=== PATIENT | female | born 1960 | race Caucasian/White ===

== ENCOUNTER 2019-08-16 09:12 | Outpatient (CLI) | payer OTHER, SELFPAY ==
--- NOTE | 2019-08-16 09:25 | US_ITS ---
WS: [id number] Gallbladder ultrasound, 08/16/2019 Clinical Data: ABDOMINAL PAIN Comparison: None. Findings: The gallbladder shows no sludge or stone. The wall measures 1.9 mm with no pericholecystic fluid. The common bile duct is 2.4 mm and there are no intrahepatic ductal abnormalities. Liver shows no cysts, masses or dilated intrahepatic ducts. The pancreas is obscured by overlying bowel gas but no cyst, pseudocyst, or evidence of pancreatitis is noted. Right kidney measures 10.5 cm and no cyst, masses or hydronephrosis can be seen. The aorta and inferior vena cava show no vascular abnormalities. US/US gall bladder [id number] Impression: Negative gallbladder.
== END 2019-08-16 09:13 | disposition home or self-care (01) ==
LOC: RAD 09:18
PROVIDERS: Family Provider Family Medicine; PCP Family Medicine; Visit Provider Nurse Practitioner Family
DX: R10.9 Unspecified abdominal pain (principal)
CPT/HCPCS: 76705

== ENCOUNTER 2019-08-16 16:30 | Inpatient (IN) | payer OTHER, SELFPAY ==
[2019-08-16] VITALS (13 sets, daily range): BP systolic 98–170; BP diastolic 65–114; PULSE 73–95; RESP 16–18; TEMP 36.6; O2SAT 88–98; BMI 27.4
--- NOTE | 2019-08-16 16:52 | ED_ITS ---
Entered by Kiah Brooks, acting as scribe for Carlos Estradaud Aug 16, 2019 16:30 HPI - Abdominal Pain General: Chief Complaint: Abdominal Pain Stated Complaint: abd pain Time Seen by Provider: 08/16/19 16:52 Source: patient and family Mode of arrival: ambulatory Limitations: no limitations History of Present Illness: HPI narrative: 58 yo Female presents to ED with complaint of abdominal pain that started 3 days ago. Pt states pain started in her right shoulder. Pt states that she went to the chiropractor who thought she had a rib out and manipulated her. Pt states that she got no relief. Pt states that yesterday she started having abdominal pain that radiates through to her back. MD elicited complaint: abdominal pain Pertinent past history: none Onset (ago): day(s) (3) Pain Consistency: constant Location: Epigastric and RUQ Radiation: back Migration to: no migration Exacerbating factors: nothing Relieving factors: nothing Associated Symptoms: Reports heartburn and nausea; Denies chills, diarrhea, dysuria, fever(s), hematuria and vomiting Review of Systems General: Reports: 10 or more systems reviewed and unremarkable except in HPI and below Const: Denies: fever or chills Eyes: Denies: change in vision, blurry vision or blind spots ENMT: Denies: throat pain, painful swallowing, hoarseness or mouth pain Card: Denies: chest pain, palpitations or irregular heart rhythm Resp: Denies: shortness of breath, productive cough or non-productive cough GI: Reports: abdominal pain, nausea and heartburn/indigestion; Denies: vomiting or diarrhea : Reports: flank pain; Denies: difficulty urinating, painful urination, urinary frequency, urinary urgency or blood in urine Musc: Denies: neck pain, back pain, extremity pain or extremity swelling Skin/Breast: Denies: rash, itching or redness Neuro: Denies: headache, numbness in extremities or weakness in extremities Endo: Denies: excessive urination, excessive thirst or tired all the time PFSH ED PFSH: Statuses (acute, chronic, etc) shown below reflect problem list status as previously entered and may not be historically accurate Medical History (Updated 08/16/19 @ 17:12 by Kiah Brooks) HTN (hypertension) (Acute) IBS (irritable bowel syndrome) (Acute) TIA (transient ischemic attack) (Acute) Surgical History (Updated 08/16/19 @ 17:12 by Kiah Brooks) History of (Acute) History of tubal ligation (Acute) Social History Smoking and tobacco status: former smoker Physical Exam Const: COMMON NORMALS: average body habitus, oriented x3, no limitations, healthy appearing, alert and well nourished; apparent distress GENERAL APPEARANCE: in distress HENMT: COMMON NORMALS: normocephalic, head/scalp atraumatic, hearing grossly normal bilaterally, external ears normal, EAC's normal, TM's normal bilaterally, external nose normal, nasal mucous membranes and turbinates normal, moist oral mucous membranes, oropharynx normal, dentition normal and gingiva normal HEAD & SCALP: normocephalic and atraumatic NOSE: external nose normal and nasal mucous membranes and turbinates normal EXTERNAL EAR: Yes external ears normal EXTERNAL AUDITORY CANAL: EAC's normal TYMPANIC MEMBRANE: TM's normal bilaterally Eye: COMMON NORMALS: PERRL, EOMs intact bilaterally, conjunctivae normal, no scleral icterus, no papilledema, normal visual garcia by confrontation and fundi normal bilaterally CONJUNCTIVA: Yes conjunctivae normal PUPIL: Yes PERRL DIRECT OPHTHALMOSCOPY: Yes no papilledema and Yes fundi normal bilaterally Neck/C-Spine: COMMON NORMALS: full ROM, no lymphadenopathy, supple, no meningeal signs, no JVD, thyroid normal and no carotid bruits THYROID: thyroid normal Chest: COMMONS NORMALS: inspection of chest normal and palpation of chest normal Resp: COMMON NORMALS: normal respiratory effort, no retractions, no use of accessory muscles, clear to auscultation bilaterally and percussion normal AUSCULTATION: clear to auscultation bilaterally PERCUSSION: percussion normal Cardio: COMMON NORMALS: no JVD, regular rate, regular rhythm, S1 normal heart sound, S2 normal heart sound, no gallops, no clicks, no murmurs, no rub and peripheral pulses 2+ throughout RATE: regular rate RHYTHM: regular rhythm HEART SOUNDS: S1 normal and S2 normal PERIPHERAL PULSES: pulses 2+ throughout GI: COMMON NORMALS: normal to inspection, nondistended, normoactive bowel sounds, soft to palpation, non-tender, no hepatosplenomegaly, no masses and no bruits PALPATION: Yes soft, Yes tender Details: RUQ and Yes no hepatosplenomegaly : COMMON NORMALS: Yes no CVA tenderness BLADDER/KIDNEY EXAM: Yes no CVA tenderness Back/Pelvis: COMMON NORMALS: no CVA tenderness, thoracic and lumbar spine normal to inspection, no thoracic nor lumbar tenderness, thoraco-lumbar ROM normal and straight leg raise negative bilaterally Extremity: COMMON NORMALS: normal to inspection, full ROM, normal capillary refill, no joint enlargement, no clubbing, cyanosis or edema, no calf tenderness and no pedal edema Neuro: COMMON NORMALS: oriented x3 SENSORIUM/ORIENTATION: Yes alert MENINGEAL SIGNS: Yes no meningeal signs Skin: COMMON NORMALS: no rashes or lesions noted, no wounds, skin turgor normal, no jaundice, no petechiae and no mottling GENERAL SKIN EXAM: no rashes or lesions noted and turgor normal Course Vital Signs: Vital signs: Vital Signs Temperature 97.8 F 08/16/19 16:31 Pulse Rate 83 08/16/19 18:14 Respiratory Rate 16 08/16/19 17:17 Blood Pressure 170/114 08/16/19 16:31 Pulse Oximetry 93 08/16/19 18:14 MDM - Abdominal Pain Lab Data: Labs: Lab Results 08/16/19 08/16/19 Range/Units 17:20 17:20 WBC 13.8 H (4.0-10.0) 10^3/ uL RBC 4.75 (4.1-5.3) 10^6/u L Hgb 15.2 (11.5-15.3) g/dL Hct 44.3 (37.0-47.0) % MCV 93.3 (81-99) fL MCH 32.0 (28.0-34.0) pg MCHC 34.3 (30.0-36.0) g/dL RDW 11.7 L (12.1-15.1) % Plt Count 295 (130-400) 10^3/c mm MPV 9.6 (7.4-10.4) fL Neut % (Auto) 74.8 % Lymph % (Auto) 14.6 % [place] % (Auto) 8.9 % Eos % (Auto) 0.9 % Baso % (Auto) 0.4 % Neut # (Auto) 10.3 H (1.8-7.7) 10^3/u L Lymph # (Auto) 2.0 (0.8-4.8) 10^3/u L [place] # (Auto) 1.2 H (0.2-0.9) 10^3/u L Eos # (Auto) 0.1 (0.0-0.8) 10^3/u L Baso # (Auto) 0.1 (0.0-0.1) 10^3/u L Nucleated RBC % (a uto) 0 % Nucleated RBCs # 0.0 /100WBC Sodium 134 L (136-145) mmol/L Potassium 3.9 (3.5-5.1) mmol/L Chloride 97 L (98-107) mmol/L Carbon Dioxide 25 (22-29) mmol/L Anion Gap 15.9 (5-19) BUN 16 (6-20) mg/dL Creatinine 0.6 (0.5-0.9) mg/dL GFR Calculation 102.3 (90-130) mL/min Glucose 113 H (74-109) mg/dL Calcium 11.0 H (8.6-10.0) mg/Dl Total Bilirubin 0.4 (0.15-1.2) mg/dL AST 17 (0-32) U/L ALT 7 (0-33) U/L Alkaline Phosphata se 112 H (35-105) IU/L Total Protein 7.4 (6.6-8.7) g/dL Albumin 4.3 (3.5-5.2) g/dL Globulin 3.1 (1.3-4.6) g/dL Lipase 32 (13-60) U/L Discharge Plan Discharge Prescriptions: No Action multivitamin Tablet 1 tab PO DAILY RF: 0 metoprolol succinate 50 mg tablet extended release 24 hr 50 mg PO BID RF: 0 temazepam 15 mg capsule 15 mg PO BEDTIME RF: 0 fluoxetine 20 mg capsule 60 mg PO DAILY RF: 0 Fish Oil 1,000 mg (120 mg-180 mg) Capsule 1 cap PO DAILY RF: 0 Coding Level of Care Code ED Supervisor [employer] for Chg Fwd Exam Problem Focused The documentation recorded by the Todd salinas Carmen, accurately reflects the service I personally performed and the decisions made by Sean iverson Daud Aug 16, 2019 16:30
[2019-08-16] MEDS: morphine 4 mg/mL SDV 1 mL IVP (17:17)
[2019-08-16] MEDS: ondansetron 2 mg/ML SDV 2 mL 4 MG IM (17:26)
[2019-08-16 17:32] LABS: Basophils # 0.1 10^3/uL (0.0-0.1); Basophils % 0.4 %; Eosinophils # 0.1 10^3/uL (0.0-0.8); Eosinophils % 0.9 %; Hematocrit 44.3 % (37.0-47.0); Hemoglobin 15.2 g/dL (11.5-15.3); Lymphocytes % 14.6 %; Mean Corpuscular HGB Conc 34.3 g/dL (30.0-36.0); Mean Corpuscular Volume 93.3 fL (81-99); Mean Platelet Volume 9.6 fL (7.4-10.4); Monocytes # 1.2 10^3/uL (0.2-0.9); Monocytes % 8.9 %; Neutrophils # 10.3 10^3/uL (1.8-7.7); Neutrophils % 74.8 %; Nucleated Red Blood Cells % 0 %; Platelet Count 295 10^3/cmm (130-400); Red Blood Count 4.75 10^6/uL (4.1-5.3); Red Cell Distribution Width 11.7 % (12.1-15.1); White Blood Count 13.8 10^3/uL (4.0-10.0)
[2019-08-16 17:42] LABS: Alanine Aminotransferase 7 U/L (0-33); Albumin Level 4.3 g/dL (3.5-5.2); Alkaline Phosphatase 112 IU/L (35-105); Anion Gap 15.9 (5-19); Aspartate Amino Transferase 17 U/L (0-32); Blood Urea Nitrogen 16 mg/dL (6-20); Carbon Dioxide 25 mmol/L (22-29); Chloride 97 mmol/L (98-107); Globulin 3.1 g/dL (1.3-4.6); Glomerular Filtration Rate 102.3 mL/min (90-130); Glucose 113 mg/dL (74-109); Lipase 32 U/L (13-60); Potassium 3.9 mmol/L (3.5-5.1); Sodium 134 mmol/L (136-145); Total Bilirubin 0.4 mg/dL (0.15-1.2); Total Protein 7.4 g/dL (6.6-8.7)
[2019-08-16] MEDS: HYDROmorphone 1 mg/mL INJ 1 mL IVP ×3 (18:28→23:27)
[2019-08-16 18:38] LABS: Add Urine Microscopic? NO
[2019-08-16 18:47] LABS: Bilirubin Urine Neg (NEGATIVE); Blood Urine Neg (Negative); Glucose Urine UA Norm (Normal); Ketones Urine Negative (Negative); Leukocyte Esterase Urine Negative (Negative); Nitrate Urine Negative (Negative); Protein Urine Neg (Negative); Specific Gravity, Urine 1.015 (1.005-1.030); Urine Appearance Clear (CLEAR); Urine Color Yellow (Yellow); Urobilinogen Urine Norm (Negative); pH Urine 5 (5-7)
--- NOTE | 2019-08-16 18:51 | CTR_ITS ---
PROCEDURE INFORMATION: Exam: CT Abdomen And Pelvis With Contrast Exam date and time: 08/16/2019 7:12 PM Age: 58 years old Clinical indication: Abdominal pain; Prior surgery; Surgery type: Tubal TECHNIQUE: Imaging protocol: Computed tomography of the abdomen and pelvis with intravenous contrast. Total DLP: 1625.46 mGy-cm Radiation optimization: All CT scans at this facility use at least one of these dose optimization techniques: automated exposure control; mA and/or kV adjustment per patient size (includes targeted exams where dose is matched to clinical indication); or iterative reconstruction. Contrast material: OMNI 300; Contrast volume: 95 ml; Contrast route: IV; COMPARISON: US gall bladder [id number] 08/16/2019 9:39 AM FINDINGS: Lungs: Mild atelectasis. Tiny low densities in the left liver lobe are too small to characterize but most likely cysts. Liver: See Lungs Finding. Gallbladder and bile ducts: Normal. No calcified stones. No ductal dilation. Pancreas: Edema in the pancreatic head with anterior fat stranding. The body and tail of the pancreas are normal. Spleen: Normal. No splenomegaly. Adrenals: Normal. No mass. Kidneys and ureters: Normal. No hydronephrosis. Stomach and bowel: Diverticulosis of the descending and sigmoid colon without diverticulitis. Mild circumferential wall thickening and enhancement of the 1st and 2nd portions of the duodenum. The remainder of the small bowel and the stomach are unremarkable. Appendix: The appendix is normal. Intraperitoneal space: Unremarkable. No free air. No significant fluid collection. Vasculature: Unremarkable. No abdominal aortic aneurysm. Lymph nodes: Multiple subcentimeter peripancreatic lymph nodes are most likely reactive. Bladder: Unremarkable as visualized. Reproductive: Unremarkable as visualized. Bones/joints: Unremarkable. No acute fracture. Soft tissues: Unremarkable. CT/CT abdomen pelvis w con* [id number] IMPRESSION: 1. Findings most consistent with acute interstitial edematous pancreatitis, isolated to the pancreatic head. An underlying neoplastic process is considered less likely and CT follow-up to document resolution is recommended. 2. Adjacent duodenitis. 3. Diverticulosis of the distal colon. Radiation Dose CTDIVOL = (mGy): DLP = 1625.46 (mGy-cm)
[2019-08-16] MEDS: sodium chloride 0.9% 1,000 ML 999 ML IV (18:57)
[2019-08-16] MEDS: iohexol 300 mg/mL 100 mL Btl IV (19:38)
[2019-08-16 20:35] LABS: Alcohol Level < 10 mg/dL (0-10)
[2019-08-16] MEDS: ondansetron 2 mg/ML SDV 2 mL 4 MG IVP (21:35)
--- NOTE | 2019-08-16 22:41 | P.HP_ITS ---
Providers/Chief Complaint Primary Care Provider: Devin Oswald DO Chief Complaint: pancratitis History of Present Illness Tristian Anthony is a 58 year old female with PMHx of HTN, Depression, Former smoker; presents from home for evaluation of abdominal pain that awakened her from sleep last night and has persisted since then. She has had intermittent nausea but no vomiting, has not been able to eat anything since the onset of pa in. She describes the pain as constant, in the epigastric and right upper quadrant area with radiation to the right upper back. Nothing seems to make the pain better but movement seems to make the pain particularly worse. She denies having had pain similar to this in the past. She drinks 1 glass of wine on Saturdays, denies any substance abuse, is a former smoker, states that she quit smoking regularly several years ago but did smoke 1 cigarette today due to the extent of her pain. is present at bedside during my assessment in the ER. She has had knees drawn up to her abdomen and is very uncomfortable during my assessment. So far she has received doses of Dilaudid and morphine with continued pain. Labs indicate leukocytosis with a white count of 13.8, normal hemoglobin, normal electrolytes, normal renal function, lipase of 32, negative alcohol screen, negative urinalysis. She had a CT of the abdomen and pelvis showing acute interstitial edematous pancreatitis isolated to the pancreatic head. She also had an ultrasound which is negative for cholecystitis. She currently rates her pain at 7 out of 10. Vital signs are stable though she is intermittently hypoxic and will likely require supplemental oxygen. I discussed her imaging findings and need for bowel rest, aggressive IV fluid hydration and continued pain control which she is agreeable to. Patient will be admitted for the aforementioned treatment. Review of Systems Const: Reports: change in appetite (decreased appetite) and malaise; Denies: fever or chills Eyes: Denies: change in vision ENMT: Reports: dry mouth Card: Denies: chest pain, swelling of feet/ankles or lightheadedness Resp: Denies: shortness of breath GI: Reports: abdominal pain (epigastric, RUQ; radiating to upper right back) and nausea; Denies: vomiting, vomiting blood, diarrhea, constipation or blood in stool : Denies: difficulty urinating, painful urination or urinary frequency Musc: Reports: back pain (right upper back pain) Skin/Breast: Denies: rash Neuro: Denies: numbness in extremities or weakness in extremities Psych: Denies: anxiety Medications/Allergies Home Medications Medication Instructions Recorded Confirmed Last Taken Type fluoxetine 60 mg PO DAILY 08/16/19 08/16/19 08/15/19 History metoprolol succinate 50 mg PO BID 08/16/19 08/16/19 08/15/19 History multivitamin 1 tab PO DAILY 08/16/19 08/16/19 08/15/19 History omega 5-[id number]-[id number]-fish oil [Fish Oil] 1 cap PO DAILY 08/16/19 08/16/19 08/15/19 History temazepam 15 mg PO BEDTIME 08/16/19 08/16/19 08/15/19 History Allergies Allergy/AdvReac Type Severity Reaction Status Date / Time meperidine [From Demerol] Allergy Unknown Verified 08/16/19 16:37 PFSH Acute PFSH: Statuses (acute, chronic, etc) shown below reflect problem list status as previously entered and may not be historically accurate Medical History HTN (hypertension) (Acute) IBS (irritable bowel syndrome) (Acute) TIA (transient ischemic attack) (Acute) Surgical History History of (Acute) History of tubal ligation (Acute) Family History (Updated 08/16/19 @ 22:43 by Carissa Levy MD) Mother Polymyalgia rheumatica Father Abdominal aortic aneurysm Other CAD (coronary artery disease) Cancer Hypertension Social History (Updated 08/16/19 @ 22:44 by Carissa Levy MD) Smoking and tobacco status: former smoker Quit status (tobacco): has quit using tobacco Year quit tobacco: Several years ago, last cigarette was today Alcohol intake: current Alcohol type: wine Alcohol use comment: 1 glass of wine per week on Saturdays Substance/Drug Use: never Lives independently: Yes Household members: spouse Housing: House Vitals/I&O/Wt Last Vital Signs Temp 97.8 F 08/16/19 16:31 Pulse 84 08/16/19 21:11 Resp 18 08/16/19 21:11 BP 98/65 08/16/19 21:11 Pulse Ox 88 L 08/16/19 21:49 08/16/19 08/16/19 08/16/19 06:59 14:59 22:59 Intake Total 1000 / 1000 Balance 1000 / 1000 Weight last 48 hrs Weight 77.111 kg Physical Exam Const: COMMON NORMALS: no apparent distress, oriented x3 and alert GENERAL APPEARANCE: cooperative; not comfortable ORIENTATION/CONSCIOUSNESS: Yes awake HENMT: COMMON NORMALS: normocephalic, head/scalp atraumatic and hearing grossly normal bilaterally HEAD & SCALP: normocephalic and atraumatic MOUTH: moist mucous membranes abnormal Details: parched Eye: COMMON NORMALS: PERRL, EOMs intact bilaterally and conjunctivae normal CONJUNCTIVA: Yes conjunctivae normal PUPIL: Yes PERRL Neck/C-Spine: COMMON NORMALS: full ROM GENERAL: Yes normal visual inspection and Yes trachea midline Resp: COMMON NORMALS: normal respiratory effort, no retractions, no use of accessory muscles and clear to auscultation bilaterally EFFORT & INSPECTION: Yes able to speak in complete sentences, Yes symmetric chest movement and No tachypneic AUSCULTATION: clear to auscultation bilaterally Cardio: COMMON NORMALS: regular rate, regular rhythm, S1 normal heart sound, S2 normal heart sound and no murmurs RATE: regular rate RHYTHM: regular rhythm HEART SOUNDS: S1 normal and S2 normal GI: INSPECTION: Yes normal to inspection and Yes central obesity AUSCULTATION: Yes normoactive bowel sounds PALPATION: Yes soft, Yes tender Details: RUQ and other (Epigastric) and No rebound tenderness present Back/Pelvis: COMMON NORMALS: thoracic and lumbar spine normal to inspection Extremity: COMMON NORMALS: normal to inspection, full ROM and no clubbing, cyanosis or edema; negative for no pedal edema Neuro: COMMON NORMALS: oriented x3, moves all extremities, no focal motor deficits and no sensory deficits noted Psych: COMMON NORMALS: mental status grossly normal, thought process normal, cooperative, affect normal and speech normal SPEECH: Yes normal speech THOUGHT PROCESS: normal thought process Skin: COMMON NORMALS: no rashes or lesions noted, no jaundice, no petechiae and no mottling GENERAL SKIN EXAM: no rashes or lesions noted Data : 08/16/19 17:20 08/16/19 17:20 A&P Assessment and plan (1) Pancreatitis: -Noted acute interstitial edematous pancreatitis isolated to the pancreatic head on CT of the abdomen and pelvis. Normal lipase -Is in quite a bit of abdominal pain currently -Bowel rest, aggressive IV fluid hydration, antiemetics and pain control as needed -Repeat labs in a.m., noted leukocytosis with an initial white count of 13.8 -Alcohol screen negative; drinks 1 glass of wine/week -Check lipid panel and A1c in a.m. Status: Acute Qualifiers: Acute pancreatitis complication: unspecified Chronicity: acute Pancreatitis type: unspecified pancreatitis type Qualified Code(s): K85.90 - Acute pancreatitis without necrosis or infection, unspecified Code(s): K85.90 - Acute pancreatitis without necrosis or infection, unspecified Additional A&P Information -HTN -Depression -Former smoker -GI ppx with PPI -DVT ppx with Lovenox -Dispo: home -Code status: FULL code Attestations Medical Necessity Statement*: [facility]'s hospital stay will require greater than 2 midnights for management of acute pancreatitis including bowel rest, aggressive IV fluid hydration, antiemetics and pain control. Time Spent in Patient Care: Greater than 35 minutes (>than 50% of time spent in counselling and/or direct pt care on unit) . Coding Level of Care Code Acute Designer And Patternmaker for Rhys Magallanes Diagnoses Pancreatitis K85.90 Acute pancreatitis complication: unspecified Chronicity: acute Pancreatitis type: unspecified pancreatitis type
[2019-08-16] MEDS: sodium chloride 0.9% 1,000 ML 200 ML IV (23:27)
[2019-08-16] MEDS: enoxaparin 40 mg/0.4 mL Syringe SUBCUT (23:28)
[2019-08-17] VITALS (12 sets, daily range): BP systolic 108–164; BP diastolic 72–91; PULSE 77–107; RESP 17–22; TEMP 36.6–37.4; O2SAT 91–95
[2019-08-17] MEDS: ketorolac 30 mg/mL INJ 15 MG IVP ×4 (02:36→20:52)
[2019-08-17] MEDS: sodium chloride 0.9% 1,000 ML 200 ML IV ×3 (05:07→16:45)
[2019-08-17] MEDS: HYDROmorphone 1 mg/mL INJ 1 mL IVP ×3 (05:35→18:59)
[2019-08-17 06:28] LABS: Basophils % 0.3 %; Eosinophils % 0.3 %; Hematocrit 38.4 % (37.0-47.0); Hemoglobin 13.1 g/dL (11.5-15.3); Lymphocytes # 1.4 10^3/uL (0.8-4.8); Lymphocytes % 12.1 %; Mean Corpuscular HGB Conc 34.1 g/dL (30.0-36.0); Mean Corpuscular Volume 93.9 fL (81-99); Mean Platelet Volume 9.9 fL (7.4-10.4); Monocytes # 0.9 10^3/uL (0.2-0.9); Monocytes % 7.8 %; Neutrophils # 9.2 10^3/uL (1.8-7.7); Neutrophils % 79.2 %; Nucleated Red Blood Cells % 0 %; Platelet Count 265 10^3/cmm (130-400); Red Blood Count 4.09 10^6/uL (4.1-5.3); Red Cell Distribution Width 11.9 % (12.1-15.1); White Blood Count 11.7 10^3/uL (4.0-10.0)
[2019-08-17 06:44] LABS: Blood Urea Nitrogen 14 mg/dL (6-20); Calcium 10.2 mg/Dl (8.6-10.0); Carbon Dioxide 23 mmol/L (22-29); Chloride 102 mmol/L (98-107); Chol HDL Ratio 4.52 mg/dL (0.0-4.40); Cholesterol 208 mg/dL (0-200); Glomerular Filtration Rate 126.3 mL/min (90-130); Glucose 113 mg/dL (74-109); HDL Cholesterol 46 mg/dL (60-100); LDL Cholesterol Calculated 136 mg/dL (50-129); LDL HDL Ratio 2.96 RATIO (0.00-3.22); Lipase 23 U/L (13-60); Sodium 137 mmol/L (136-145); Triglycerides 128 mg/dL (0-150)
[2019-08-17] MEDS: pantoprazole 40 mg SDV IVP (08:33)
[2019-08-17 08:42] LABS: Estmated Average Glucose 85; Hemoglobin A1C 4.6 % (4.0-6.0)
--- NOTE | 2019-08-17 12:35 | P.PN_ITS ---
Subjective Subjective: Interval history: Pain better controlled, Passing flatus. No BM. nausea + Medications: Reviewed: Yes Vitals/I&O/Wt Last Vital Signs Temp 99.3 F 08/17/19 12:00 Pulse 103 H 08/17/19 12:00 Resp 17 08/17/19 12:00 BP 131/76 08/17/19 12:00 Pulse Ox 91 08/17/19 12:00 08/16/19 08/17/19 08/17/19 22:59 06:59 14:59 Intake Total 1000 / 1000 1000 / 2000 1000 / 1000 Output Total 400 / 400 200 / 200 Balance 1000 / 1000 600 / 1600 800 / 800 Weight last 48 hrs Weight 94.546 kg Weight 94.546 kg Weight 77.111 kg Physical Exam Const: COMMON NORMALS: no apparent distress and oriented x3 Neck/C-Spine: COMMON NORMALS: no JVD Resp: COMMON NORMALS: normal respiratory effort, no retractions, no use of accessory muscles, clear to auscultation bilaterally and percussion normal AUSCULTATION: clear to auscultation bilaterally PERCUSSION: percussion normal Cardio: COMMON NORMALS: no JVD, regular rate, regular rhythm, S1 normal heart sound, S2 normal heart sound, no gallops, no clicks, no murmurs, no rub and peripheral pulses 2+ throughout RATE: regular rate RHYTHM: regular rhythm HEART SOUNDS: S1 normal and S2 normal PERIPHERAL PULSES: pulses 2+ throughout GI: COMMON NORMALS: normal to inspection, nondistended, normoactive bowel sounds PALPATION: Yes tender Details: LUQ and RUQ Neuro: COMMON NORMALS: oriented x3 Data : 08/17/19 05:52 08/17/19 05:52 A&P Assessment and plan (1) Pancreatitis: -Noted acute interstitial edematous pancreatitis isolated to the pancr eatic head on CT of the abdomen and pelvis. Normal lipase -Is in quite a bit of abdominal pain currently -Bowel rest, aggressive IV fluid hydration, antiemetics and pain control as needed -Repeat labs in a.m., noted leukocytosis with an initial white count of 13.8 - blood cx, CXR -Alcohol screen negative; drinks 1 glass of wine/week -Check lipid panel and A1c in a.m. 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
--- NOTE | 2019-08-17 12:38 | XR_ITS ---
WS: [id number] Portable AP upright chest, 08/17/2019 Clinical Data: r/o pneumonia Comparison: PA and lateral chest, 01/04/2019. Findings: No nodules, masses or effusions are seen. The heart is normal. The pulmonary vascularity is not increased. No pneumonia or pneumothorax is seen. XR/XR chest 1V portable [id number] Impression: Negative chest.
[2019-08-17] MEDS: ondansetron 2 mg/ML SDV 2 mL 4 MG IVP (20:52)
[2019-08-17] MEDS: sodium chloride 0.9% 1,000 ML 150 ML IV (21:01)
[2019-08-17] MEDS: enoxaparin 40 mg/0.4 mL Syringe SUBCUT (22:49)
[2019-08-18] VITALS (12 sets, daily range): BP systolic 134–163; BP diastolic 75–89; PULSE 88–105; RESP 16–18; TEMP 36.7–37.1; O2SAT 92–95
[2019-08-18] MEDS: HYDROmorphone 1 mg/mL INJ 1 mL IVP ×3 (01:23→15:24)
[2019-08-18] MEDS: sodium chloride 0.9% 1,000 ML 150 ML IV ×3 (04:45→17:34)
[2019-08-18] MEDS: ondansetron 2 mg/ML SDV 2 mL 4 MG IVP (04:52)
[2019-08-18] MEDS: ketorolac 30 mg/mL INJ 15 MG IVP ×3 (04:52→21:45)
[2019-08-18 06:21] LABS: Ionized Calcium 1.3 mmol/L (1.1-1.4)
[2019-08-18 06:27] LABS: Basophils # 0.1 10^3/uL (0.0-0.1); Basophils % 0.5 %; Eosinophils # 0.1 10^3/uL (0.0-0.8); Eosinophils % 0.8 %; Hematocrit 36.9 % (37.0-47.0); Hemoglobin 12.5 g/dL (11.5-15.3); Lymphocytes # 1.6 10^3/uL (0.8-4.8); Lymphocytes % 15.6 %; Mean Corpuscular HGB Conc 33.9 g/dL (30.0-36.0); Mean Corpuscular Volume 91.6 fL (81-99); Mean Platelet Volume 9.4 fL (7.4-10.4); Monocytes # 0.8 10^3/uL (0.2-0.9); Monocytes % 8.1 %; Neutrophils # 7.4 10^3/uL (1.8-7.7); Neutrophils % 74.6 %; Nucleated Red Blood Cells % 0 %; Platelet Count 253 10^3/cmm (130-400); Red Blood Count 4.03 10^6/uL (4.1-5.3); Red Cell Distribution Width 11.7 % (12.1-15.1); White Blood Count 9.9 10^3/uL (4.0-10.0)
[2019-08-18 06:46] LABS: Alanine Aminotransferase 12 U/L (0-33); Albumin Level 3.8 g/dL (3.5-5.2); Alkaline Phosphatase 89 IU/L (35-105); Anion Gap 16.5 (5-19); Aspartate Amino Transferase 12 U/L (0-32); Blood Urea Nitrogen 5 mg/dL (6-20); Calcium 10.2 mg/Dl (8.6-10.0); Carbon Dioxide 23 mmol/L (22-29); Chloride 101 mmol/L (98-107); Globulin 2.7 g/dL (1.3-4.6); Glomerular Filtration Rate 163.4 mL/min (90-130); Glucose 83 mg/dL (74-109); Potassium 3.5 mmol/L (3.5-5.1); Sodium 137 mmol/L (136-145); Total Bilirubin 0.5 mg/dL (0.15-1.2); Total Protein 6.5 g/dL (6.6-8.7)
[2019-08-18 06:59] LABS: Calcium 9.9 mg/dL (8.8-10.2); Parathyroid Hormone 47.6 pg/mL (15-65)
[2019-08-18] MEDS: pantoprazole 40 mg SDV IVP (08:46)
--- NOTE | 2019-08-18 10:22 | PC.NURSE ---
Notified Dr Cole via [facility] R/T patient C/O headache. No orders thus far
--- NOTE | 2019-08-18 10:51 | PC.NURSE ---
administer PRN toradol for headache a this time
--- NOTE | 2019-08-18 11:59 | PC.NURSE ---
Pt resting in bed with eyes closed. Resp even and unlabored. 0 s/s of distress noted. Call light in reach
--- NOTE | 2019-08-18 18:16 | P.PN_ITS ---
Subjective Subjective: Interval history: Pain better controlled, passing gas. No nausea today. hemodynamically stable. Afebrile. C/o mild headache Medications: Reviewed: Yes Vitals/I&O/Wt Last Vital Signs Temp 98.1 F 08/18/19 15:48 Pulse 90 08/18/19 15:48 Resp 18 08/18/19 15:48 BP 150/88 08/18/19 15:48 Pulse Ox 94 08/18/19 15:48 08/18/19 08/18/19 08/18/19 06:59 14:59 22:59 Intake Total 1000 / 3816.666 0 / 0 1000 / 1000 Output Total 1100 / 1100 1000 / 2100 Balance 1000 / 3216.666 -1100 / -1100 0 / -1100 Weight last 48 hrs Weight 94.755 kg Weight 94.546 kg Weight 94.546 kg Physical Exam Const: COMMON NORMALS: no apparent distress and oriented x3 Neck/C-Spine: COMMON NORMALS: no JVD Resp: COMMON NORMALS: normal respiratory effort, no retractions, no use of accessory muscles, clear to auscultation bilaterally and percussion normal AUSCULTATION: clear to auscultation bilaterally PERCUSSION: percussion normal Cardio: COMMON NORMALS: no JVD, regular rate, regular rhythm, S1 normal heart sound, S2 normal heart sound, no gallops, no clicks, no murmurs, no rub and peripheral pulses 2+ throughout RATE: regular rate RHYTHM: regular rhythm HEART SOUNDS: S1 normal and S2 normal PERIPHERAL PULSES: pulses 2+ throughout GI: COMMON NORMALS: normal to inspection, nondistended, normoactive bowel sounds PALPATION: Yes tender Neuro: COMMON NORMALS: oriented x3 Data : 08/18/19 06:08 08/18/19 06:08 Micro: Microbiology 08/17/19 13:01 Blood Culture - Preliminary Blood NEGATIVE TO DATE 08/17/19 13:10 Blood Culture - Preliminary Blood NEGATIVE TO DATE A&P Assessment and plan (1) Pancreatitis: -Noted acute interstitial edematous pancreatitis isolated to the pancreatic head on CT of the abdomen and pelvis. Normal lipase - abdominal pain improving - start clear liquid diet. will advance diet in am if tolerates - aggressive IV fluid hydration, antiemetics and pain control as needed with alternating dilaudid and toradol - blood cx, CXR negative thus far -Alcohol screen negative; drinks 1 glass of wine/week - unclear precipitating cause . Status: Acute Qualifiers: Acute pancreatitis complication: unspecified Chronicity: acute Pancreatitis type: unspecified pancreatitis type Qualified Code(s): K85.90 - Acute pancreatitis without necrosis or infection, unspecified Code(s): K85.90 - Acute pancreatitis without necrosis or infection, unspecified Additional A&P Information -HTN -Depression -Former smoker -GI ppx with PPI -DVT ppx with Lovenox -Dispo: home -Code status: FULL code Attestations Medical Necessity Statement*: ongoing mangament of pancreatitis, awaiting clinical improvement, started diet today Coding Level of Care Code Acute Electrical And Instrument Engineer for [facility] Fwd Diagnoses Pancreatitis K85.90 Acute pancreatitis complication: unspecified Chronicity: acute Pancreatitis type: unspecified pancreatitis type
--- NOTE | 2019-08-18 18:31 | PC.NURSE ---
Call to Dr Cole regarding VS, Order to change VS to Q4H
[2019-08-18] MEDS: enoxaparin 40 mg/0.4 mL Syringe SUBCUT (23:01)
[2019-08-19] VITALS (7 sets, daily range): BP systolic 128–163; BP diastolic 79–94; PULSE 71–90; RESP 16–20; TEMP 36.6–37.1; O2SAT 94–97
[2019-08-19] MEDS: sodium chloride 0.9% 1,000 ML 150 ML IV ×3 (01:58→17:24)
[2019-08-19] MEDS: HYDROmorphone 1 mg/mL INJ 1 mL IVP (02:06)
[2019-08-19 05:54] LABS: Basophils % 0.4 %; Eosinophils # 0.2 10^3/uL (0.0-0.8); Hematocrit 34.5 % (37.0-47.0); Hemoglobin 11.5 g/dL (11.5-15.3); Lymphocytes # 1.7 10^3/uL (0.8-4.8); Lymphocytes % 26.1 %; Mean Corpuscular HGB Conc 33.3 g/dL (30.0-36.0); Mean Corpuscular Hemoglobin 31.7 pg (28.0-34.0); Mean Platelet Volume 9.6 fL (7.4-10.4); Monocytes # 0.6 10^3/uL (0.2-0.9); Monocytes % 9.1 %; Neutrophils # 4.1 10^3/uL (1.8-7.7); Neutrophils % 61.1 %; Nucleated Red Blood Cells % 0 %; Platelet Count 245 10^3/cmm (130-400); Red Blood Count 3.63 10^6/uL (4.1-5.3); Red Cell Distribution Width 11.7 % (12.1-15.1); White Blood Count 6.7 10^3/uL (4.0-10.0)
[2019-08-19] MEDS: pantoprazole 40 mg SDV IVP (09:41)
[2019-08-19] MEDS: ketorolac 30 mg/mL INJ 15 MG IVP ×2 (09:45→23:00)
--- NOTE | 2019-08-19 12:27 | PM.PN ---
Subjective Subjective: Interval history: Afebrile. Hemodynamically stable. No leukocytosis. No acute overnight events. Medications: Reviewed: Yes Vitals/I&O/Wt Last Vital Signs Temp 98.1 F 08/19/19 07:40 Pulse 79 08/19/19 07:40 Resp 18 08/19/19 07:40 BP 150/82 08/19/19 07:40 Pulse Ox 96 08/19/19 07:40 08/18/19 08/19/19 08/19/19 22:59 06:59 14:59 Intake Total 1000 / 1000 1597 / 2597 1240 / 1240 Output Total 1000 / 2100 Balance 0 / -1100 1597 / 497 1240 / 1240 Weight last 48 hrs Weight 94.517 kg Weight 94.755 kg Physical Exam Const: COMMON NORMALS: no apparent distress and oriented x3 Neck/C-Spine: COMMON NORMALS: no JVD Resp: COMMON NORMALS: normal respiratory effort, no retractions, no use of accessory muscles, clear to auscultation bilaterally and percussion normal AUSCULTATION: clear to auscultation bilaterally PERCUSSION: percussion normal Cardio: COMMON NORMALS: no JVD, regular rate, regular rhythm, S1 normal heart sound, S2 normal heart sound, no gallops, no clicks, no murmurs, no rub and peripheral pulses 2+ throughout RATE: regular rate RHYTHM: regular rhythm HEART SOUNDS: S1 normal and S2 normal PERIPHERAL PULSES: pulses 2+ throughout GI: COMMON NORMALS: normal to inspection, nondistended, normoactive bowel sounds PALPATION: Yes tender Neuro: COMMON NORMALS: oriented x3 Data : 08/19/19 05:20 08/18/19 06:08 Micro: Microbiology 08/17/19 13:01 Blood Culture - Preliminary Blood NEGATIVE TO DATE 08/17/19 13:10 Blood Culture - Preliminary Blood NEGATIVE TO DATE A&P Assessment and plan (1) Pancreatitis: -Noted acute interstitial edematous pancreatitis isolated to the pancreatic head on CT of the abdomen and pelvis. Normal lipase - abdominal pain improving, less frequent now - advance diet to full liquid as tolerated clear liquids - aggressive IV fluid hydration, antiemetics and pain control as needed with alternating dilaudid and toradol - blood cx, CXR negative thus far -Alcohol screen negative; drinks 1 glass of wine/week - unclear precipitating cause . -if pain persists, will plan for MRCP Status: Acute Qualifiers: Acute pancreatitis complication: unspecified Chronicity: acute Pancreatitis type: unspecified pancreatitis type Qualified Code(s): K85.90 - Acute pancreatitis without necrosis or infection, unspecified Code(s): K85.90 - Acute pancreatitis without necrosis or infection, unspecified Additional A&P Information -HTN -Depression -Former smoker -GI ppx with PPI -DVT ppx with Lovenox -Dispo: home -Code status: FULL code Attestations Medical Necessity Statement*: management of pancreatitis, slowly advancing diet Coding Level of Care Code Acute Certified First Assistant for [facility] Fwd Exam Problem Focused Diagnoses Pancreatitis K85.90 Acute pancreatitis complication: unspecified Chronicity: acute Pancreatitis type: unspecified pancreatitis type
[2019-08-19] MEDS: enoxaparin 40 mg/0.4 mL Syringe SUBCUT (21:26)
[2019-08-19] MEDS: temazepam 15 mg Capsule PO (21:26)
[2019-08-20] VITALS: BP 151/81; PULSE 72; RESP 18; TEMP 36.5; O2SAT 95
[2019-08-20] MEDS: sodium chloride 0.9% 1,000 ML 150 ML IV (03:25)
[2019-08-20 04:00] VITALS: BP 162/99; PULSE 84; RESP 18; TEMP 36.7; O2SAT 94
[2019-08-20 06:39] LABS: Basophils % 0.7 %; Eosinophils # 0.2 10^3/uL (0.0-0.8); Eosinophils % 3.1 %; Hematocrit 34.1 % (37.0-47.0); Hemoglobin 12.1 g/dL (11.5-15.3); Lymphocytes # 1.6 10^3/uL (0.8-4.8); Lymphocytes % 26.8 %; Mean Corpuscular HGB Conc 35.5 g/dL (30.0-36.0); Mean Corpuscular Hemoglobin 31.3 pg (28.0-34.0); Mean Corpuscular Volume 88.1 fL (81-99); Mean Platelet Volume 9.4 fL (7.4-10.4); Monocytes # 0.6 10^3/uL (0.2-0.9); Monocytes % 9.5 %; Neutrophils # 3.5 10^3/uL (1.8-7.7); Neutrophils % 59.6 %; Nucleated Red Blood Cells % 0 %; Platelet Count 307 10^3/cmm (130-400); Red Blood Count 3.87 10^6/uL (4.1-5.3); Red Cell Distribution Width 11.5 % (12.1-15.1); White Blood Count 5.9 10^3/uL (4.0-10.0)
[2019-08-20 08:00] VITALS: BP 131/74; PULSE 81; RESP 16; TEMP 36.8; O2SAT 97
[2019-08-20] MEDS: fluoxetine 20 mg Capsule 60 MG PO (08:51)
[2019-08-20] MEDS: metoprolol succinate ER (24 HR) 50 mg Tablet PO (08:52)
[2019-08-20] MEDS: pantoprazole 40 mg SDV IVP (09:38)
--- NOTE | 2019-08-20 11:08 | PC.NURSE ---
PT GONE TO MRI.
[2019-08-20 12:00] VITALS: BP 151/88; PULSE 83; RESP 17; TEMP 36.6; O2SAT 97
--- NOTE | 2019-08-20 14:01 | PM.DCS ---
Discharge Providers Date of Admission: 08/16/19 22:17 Date of Discharge: 08/20/19 Attending Provider at Admission: Carissa Levy MD Attending Provider at Discharge: Jadiel Reyna MD Primary Care Provider: Devin Oswald DO Diagnoses at Discharge Discharge Diagnosis (1) Pancreatitis: Status: Acute Qualifiers: Acute pancreatitis complication: unspecified Chronicity: acute Pancreatitis type: unspecified pancreatitis type Qualified Code(s): K85.90 - Acute pancreatitis without necrosis or infection, unspecified Reason for Visit Reason for Visit: Reason For Visit: Pancreatitis Hospital Course Discharge Summary: Tristian Anthony is a 58 year old female with PMHx of HTN, Depression, Former smoker; presented to the ER on August 16 with complaint of abdominal pain with nausea and vomiting was found to have pancreatitis on CT abdomen. Patient was admitted to the floors and treated conservatively with IV fluids and her diet was advanced gradually. Etiology of pancreatitis is unclear as patient is not an alcoholic, triglycerides were normal, HbA1c was normal, abdominal imaging was unremarkable for gallstones and the blood work was unremarkable for recent gallstone. Though unlikely autoimmune work-up was sent and is pending. On further interview with patient she stated that she had recently started Mediterranean diet 1 month ago. Patient has documented allergies other food products before so has been advised to follow-up with allergy clinic in [place] to rule out allergy to 1 of the components from Mediterranean diet. Patient for now has been advised to advance her diet gradually while having brat diet for next 1 week. On discharge patient is tolerating GI soft diet well. Patient has also been advised to follow-up with a tax advisor in [place] for pancreatitis. Patient is been discharged in hemodynamically stable condition, pain-free and tolerating GI soft diet well. Physical Exam Const: COMMON NORMALS: no apparent distress, oriented x3 and alert GENERAL APPEARANCE: cooperative; not comfortable ORIENTATION/CONSCIOUSNESS: Yes awake HENMT: COMMON NORMALS: normocephalic, head/scalp atraumatic and hearing grossly normal bilaterally HEAD & SCALP: normocephalic and atraumatic MOUTH: moist mucous membranes abnormal Details: parched Eye: COMMON NORMALS: PERRL, EOMs intact bilaterally and conjunctivae normal CONJUNCTIVA: Yes conjunctivae normal PUPIL: Yes PERRL Neck/C-Spine: COMMON NORMALS: full ROM and no JVD GENERAL: Yes normal visual inspection and Yes trachea midline Resp: COMMON NORMALS: normal respiratory effort, no retractions, no use of accessory muscles, clear to auscultation bilaterally and percussion normal EFFORT & INSPECTION: Yes able to speak in complete sentences, Yes symmetric chest movement and No tachypneic AUSCULTATION: clear to auscultation bilaterally PERCUSSION: percussion normal Cardio: COMMON NORMALS: no JVD, regular rate, regular rhythm, S1 normal heart sound, S2 normal heart sound, no gallops, no clicks, no murmurs, no rub and peripheral pulses 2+ throughout RATE: regular rate RHYTHM: regular rhythm HEART SOUNDS: S1 normal and S2 normal PERIPHERAL PULSES: pulses 2+ throughout GI: COMMON NORMALS: normal to inspection, nondistended, normoactive bowel sounds and soft to palpation INSPECTION: Yes normal to inspection and Yes central obesity AUSCULTATION: Yes normoactive bowel sounds PALPATION: Yes soft, Yes tender and No rebound tenderness present Back/Pelvis: COMMON NORMALS: thoracic and lumbar spine normal to inspection Extremity: COMMON NORMALS: normal to inspection, full ROM and no clubbing, cyanosis or edema; negative for no pedal edema Neuro: COMMON NORMALS: oriented x3, moves all extremities, no focal motor deficits and no sensory deficits noted SENSORIUM/ORIENTATION: Yes alert Psych: COMMON NORMALS: mental status grossly normal, thought process normal, cooperative, affect normal and speech normal SPEECH: Yes normal speech THOUGHT PROCESS: normal thought process Skin: COMMON NORMALS: no rashes or lesions noted, no jaundice, no petechiae and no mottling GENERAL SKIN EXAM: no rashes or lesions noted Discharge Data Data Completed and Pending: Completed Studies During Hospitalization Category Date Time Status CT abdomen pelvis w con* [id number] Urge nt Cat Scan 08/16/19 18:51 Completed XR chest 1V naomi ble [id number] Routine Exams 08/17/19 12:38 Completed MR MRCP [id number] Rou aldo MRI 08/20/19 17:21 Completed Pending at discharge Category Date Time Status Blood Culture AM LABS Lab 08/20/19 05:54 Results Blood Culture Sta t Lab 08/17/19 13:01 Results [facility] Profile R outine Lab 08/19/19 05:20 Received Labs from last 24 hours 08/20/19 06:22 WBC 5.9 RBC 3.87 L Hgb 12.1 Hct 34.1 L MCV 88.1 MCH 31.3 MCHC 35.5 RDW 11.5 L Plt Count 307 MPV 9.4 Neut % (Auto) 59.6 Lymph % (Auto) 26.8 [place] % (Auto) 9.5 Eos % (Auto) 3.1 Baso % (Auto) 0.7 Neut # (Auto) 3.5 Lymph # (Auto) 1.6 [place] # (Auto) 0.6 Eos # (Auto) 0.2 Baso # (Auto) 0.0 Nucleated RBC % (a uto) 0 Nucleated RBCs # 0.0 Vitals: Last Vital Signs Temp 97.8 F 08/20/19 12:00 Pulse 83 08/20/19 12:00 Resp 17 08/20/19 12:00 BP 151/88 08/20/19 12:00 Pulse Ox 97 08/20/19 12:00 Discharge Plan Discharge Patient Disposition: Home, Self-Care Condition: Stable Prescriptions: New pantoprazole [Protonix] 40 mg tablet,delayed release (DR/EC) 40 mg PO DAILY 28 Days Qty: 30 RF: 0 Continued multivitamin Tablet 1 tab PO DAILY RF: 0 metoprolol succinate 50 mg tablet extended release 24 hr 50 mg PO BID RF: 0 temazepam 15 mg capsule 15 mg PO BEDTIME RF: 0 fluoxetine 20 mg capsule 60 mg PO DAILY RF: 0 Fish Oil 1,000 mg (120 mg-180 mg) Capsule 1 cap PO DAILY RF: 0 Discharge Orders: Discharge Order (Routine); Ordered 08/20/19 Ordered By: Jadiel Reyna Referrals: Devin Oswald, [Primary Care Provider] - Discharge Diet: Advance as tolerated and As Directed Discharge Activity: Resume usual activity Activity Restrictions/Additional Instructions: Follow-up with tax advisor in [place] in 2 weeks. Follow-up at allergy clinic in [place] to rule out allergy to Mediterranean diet Brat diet for 1 week and gradually advancing as tolerated. Discharge Attestations Time Spent in Discharge Care*: greater than 30 min Specific Discharge Activities: Specific discharge activities: educating patient and evaluating patient/reviewing data Status at Discharge: Cognitive status at discharge: cognitively intact, Behavioral status at discharge: cooperative, Functional status at discharge: independent ambulation Overall status at discharge: patient is back to baseline Quality Metrics Clinical Quality Measures During this hospital stay, did patient experience: None Coding Level of Care Code Acute Electrical Technician for [facility] Fwd Diagnoses Pancreatitis K85.90 Acute pancreatitis complication: unspecified Chronicity: acute Pancreatitis type: unspecified pancreatitis type
[2019-08-20 15:01] VITALS: BP 151/88; PULSE 83; RESP 17; TEMP 36.6; O2SAT 97
--- NOTE | 2019-08-20 17:21 | MR_ITS ---
WS: [id number] MRI/MRCP OF THE ABDOMEN WITHOUT GADOLINIUM ENHANCEMENT TECHNIQUE: Thin and thick slab MRCP, Axial T2, Coronal MRCP, Axial Dual Echo, and Axial 2-D Fiesta imaging was obtained. Coronal 2-D Fiesta imaging. CLINICAL INFORMATION: pancreatitis, r/o gallstone COMPARISON: CT 1 16,020 FINDINGS: T2 hyperintensity consistent with edema and surrounding induration consistent with acute pancreatitis similar to the recent CT. No evidence of pseudocyst or drainable fluid collection. No significant pa ncreatic ductal dilatation. Mild fatty atrophy of the pancreas. Gallbladder is normal. No intrahepatic biliary ductal dilatation. No visualized obstructing common bi le duct stones. No evidence of choledocholithiasis. Liver is normal. Normal gastroesophageal junction. Normal spleen. Normal renal parenchymal enhancemen t. Normal caliber abdominal aorta. MR/MR MRCP [id number] Impression: 1. Inflammatory stranding and edema involving the pancreatic head similar to t he recent CT consistent with pancreatitis. 2. No evidence of abscess or fluid collection. 3. No evidence of choledocholithiasis. No pancreatic ductal dilatation. 4. Normal intrahepatic and common bile ducts. Normal gallbladder.
[2019-08-21 14:12] LABS: Anti-Double Strand DNA AB <1 IU/mL; Jo-1 Antibody <1.0 NEG AI (<1.0 NEG); SM/RNP Antibodies <1.0 NEG AI (<1.0 NEG); SS-B/LA IGG <1.0 NEG AI (<1.0 NEG); Scleroderma Ab(Scl-70) Ab <1.0 NEG AI (<1.0 NEG); Ss-A/Ro Igg <1.0 NEG AI (<1.0 NEG)
== END 2019-08-20 15:30 | disposition home or self-care (01) | DRG 440 ==
LOC: ER 22:16 → MEDSURG 22:45
PROVIDERS: Student in an Organized Health Care Education/Training Program; Admitting Provider Family Medicine; Emergency Provider Emergency Medicine; Family Provider Family Medicine; PCP Family Medicine; Visit Provider Student in an Organized Health Care Education/Training Program
DX: K85.80 Other acute pancreatitis without necrosis or infection (principal); I10 Essential (primary) hypertension; F32.9 Major depressive disorder, single episode, unspecified; F17.210 Nicotine dependence, cigarettes, uncomplicated
CPT/HCPCS: 12345; 36415; 71045; 74177; 74181; 80048; 80053; 80061; 80307; 81003; 82310; 82330; 83036; 83690; 83970; 84443; 85025; 86225; 86235; 87040; 96372; 96374; 96375; 99283; A9270; C9113; J1170; J1650; J1885; J2270; J2405; J7030; Q9967

== ENCOUNTER 2019-12-25 13:06 | Emergency (ER) | payer OTHER, SELFPAY ==
[2019-12-25] VITALS (9 sets, daily range): BP systolic 95–154; BP diastolic 61–94; PULSE 57–81; RESP 14–20; TEMP 36–36.5; O2SAT 94–97; BMI 29.0
--- NOTE | 2019-12-25 13:26 | ED_ITS ---
HPI - Abdominal Pain General: Chief Complaint: Abdominal Pain Stated Complaint: abd pain Time Seen by Provider: 12/25/19 13:23 History of Present Illness: HPI narrative: Patient is a 59-year-old female who comes to the ED with abdominal pain and nausea. Patient has a past medical history of pancreatitis. Patient says abdominal pain started last night and is continued to progress into today. Pain is located in the right upper quadrant region of the abdomen. She is also complaining of having some nausea. Several days ago she said she had about 5 bowel movements in 1 day and they were all small formed stool. Today she only ate a Nut[employer] bar in the morning and that did not make her feel any better and she has been sipping on water throughout the rest of the day. Abdominal pain is rated 9 out of 10 in the abdomen. Associated Symptoms: Reports nausea; Denies chills, constipation, diarrhea, dysuria, fever(s), hematochezia, hematuria and vomiting Review of Systems Const: Denies: fever(s), chills or fatigue Eyes: Denies: change in vision or eye discomfort ENMT: Denies: throat pain, odynophagia, nasal discharge or nasal congestion Card: Denies: chest pain, palpitations, edema, swelling of feet/ankles, dyspnea on exertion or orthopnea Resp: Denies: dyspnea, productive cough or non-productive cough GI: Reports: abdominal pain and nausea; Denies: vomiting, diarrhea, constipation or hematochezia : Denies: flank pain, dysuria or hematuria Musc: Denies: neck pain, back pain or extremity swelling Skin/Breast: Denies: rash or new lesions Neuro: Denies: headache(s), numbness in extremities or weakness in extremities PFSH ED PFSH: Medical History HTN (hypertension) IBS (irritable bowel syndrome) TIA (transient ischemic attack) Surgical History History of History of tubal ligation Family History Mother Polymyalgia rheumatica Father Abdominal aortic aneurysm Other CAD (coronary artery disease) Cancer Hypertension Social History Smoking and tobacco status: former smoker Quit status (tobacco): has quit using tobacco Year quit tobacco: Several years ago, last cigarette was today Alcohol intake: current Alcohol type: wine Lives independently: Yes Household members: spouse Housing: House Physical Exam Const: COMMON NORMALS: patient oriented x3 and alert GENERAL APPEARANCE: cooperative, anxious (mildly anxious due to pain) and well hydrated; not comfortable (pt appears uncomfortable and little anxious due to pain.) HENMT: COMMON NORMALS: normocephalic HEAD & SCALP: normocephalic MOUTH: Normal oral and palatal mucosa present THROAT: posterior oropharynx normal and uvula midline Eye: COMMON NORMALS: Equal, round and reactive pupils present PUPIL: Yes Equal, round and reactive pupils present Neck/C-Spine: COMMON NORMALS: supple GENERAL: Yes normal visual inspection Resp: COMMON NORMALS: normal respiratory effort, No retractions, No use of accessory muscles and clear to auscultation bilaterally EFFORT & INSPECTION: Yes able to speak in complete sentences and No respiratory distress AUSCULTATION: clear to auscultation bilaterally Cardio: COMMON NORMALS: regular rate, regular rhythm, S1 normal heart sound present, S2 normal heart sound present, No gallops present (Cardio), No clicks present (Cardio), No murmurs present (Cardio) and Peripheral pulses 2+ throughout RATE: regular rate RHYTHM: regular rhythm HEART SOUNDS: S1 normal heart sound present and S2 normal heart sound present PERIPHERAL PULSES: Peripheral pulses 2+ throughout GI: COMMON NORMALS: Normal to inspection, nondistended, normoactive bowel sounds present, Soft to palpation and no masses AUSCULTATION: Yes normoactive bowel sounds PALPATION: Yes Soft to palpation and Yes Tenderness to palpation present (GI) Details: RUQ (sena sign positive) : COMMON NORMALS: Yes no CVA tenderness BLADDER/KIDNEY EXAM: Yes no CVA tenderness Back/Pelvis: COMMON NORMALS: no CVA tenderness Extremity: COMMON NORMALS: normal to inspection and no pedal edema Neuro: COMMON NORMALS: patient oriented x3 SENSORIUM/ORIENTATION: Yes alert GAIT: Yes Normal gait present Skin: COMMON NORMALS: no rashes or lesions noted GENERAL SKIN EXAM: no rashes or lesions noted and dry skin Course Vital Signs: Vital signs: Vital Signs Temperature 97.6 F 12/25/19 17:14 Pulse Rate 57 L 12/25/19 17:14 Respiratory Rate 18 12/25/19 17:14 Blood Pressure 113/71 12/25/19 17:14 Pulse Oximetry 97 12/25/19 17:14 MDM - Abdominal Pain MDM Narrative: Medical decision making narrative: Patient is a 59-year-old female who comes to the ED with abdominal pain and nausea. Patient has a past medical history of pancreatitis. Physical exam showed right upper quadrant tenderness with a positive Sena sign. White blood cell count of 10.6, sodium of 133, and lipase of 36. Ultrasound of the gallbladder was performed and showed no acute findings. CT of the abdomen pelvis showed Very minimal changes of acute pancreatitis centered to the uncinate process of the pancreas. Patient diagnosed with pancreatitis and she preferred not to be admitted. Patient was discharged and given some hydrocodone and Zofran to help with pain and nausea. She was told to be n.p.o. for the next 24 hours besides drinking water. She was then told to advance diet as tolerated. If symptoms worsen she can return to the ED for reevaluation. Patient understood and agreed with plan. Lab Data: Attestation: I reviewed the patient's lab results. Labs: Lab Results 12/25/19 12/25/19 Range/Units 13:34 13:34 WBC 10.6 H (4.0-10.0) 10^3/ uL RBC 4.87 (4.1-5.3) 10^6/u L Hgb 15.1 (11.5-15.3) g/dL Hct 44.0 (37.0-47.0) % MCV 90.3 (81-99) fL MCH 31.0 (28.0-34.0) pg MCHC 34.3 (30.0-36.0) g/dL RDW 12.4 (12.1-15.1) % Plt Count 263 (130-400) 10^3/c mm MPV 9.6 (7.4-10.4) fL Neut % (Auto) 71.6 % Lymph % (Auto) 19.0 % Angelina % (Auto) 7.6 % Eos % (Auto) 0.8 % Baso % (Auto) 0.7 % Neut # (Auto) 7.6 (1.8-7.7) 10^3/u L Lymph # (Auto) 2.0 (0.8-4.8) 10^3/u L Angelina # (Auto) 0.8 (0.2-0.9) 10^3/u L Eos # (Auto) 0.1 (0.0-0.8) 10^3/u L Baso # (Auto) 0.1 (0.0-0.1) 10^3/u L Nucleated RBC % (a uto) 0 % Nucleated RBCs # 0.0 /100WBC Sodium 133 L (136-145) mmol/L Potassium 4.1 (3.5-5.1) mmol/L Chloride 98 (98-107) mmol/L Carbon Dioxide 23 (22-29) mmol/L Anion Gap 16.1 (5-19) BUN 15 (8-23) mg/dL Creatinine 0.5 (0.5-0.9) mg/dL GFR Calculation 125.9 (90-130) mL/min Glucose 105 (65-115) mg/dL Calculated Osmolal ity 273 L (285-295) mOsm/k g Calcium 9.9 (8.5-10.5) mg/dL Total Bilirubin 0.3 (0.15-1.2) mg/dL AST 19 (0-32) U/L ALT 22 (0-33) U/L Alkaline Phosphata se 89 (35-105) IU/L Total Protein 6.6 (6.6-8.7) g/dL Albumin 4.2 (3.5-5.2) g/dL Globulin 2.4 (1.3-4.6) g/dL Lipase 36 (13-60) U/L Imaging Data ^: US: Attestation: I personally reviewed and interpreted this imaging study as follows: Radiologist's impression: [address] [address] Ultrasound Report Signed Patient: Tristian Anthony Unit #: [id number] : 1960 Age/Sex: 59 / F ADM Date: 12/25/19 Loc: ER Room/Bed: Attending Dr: Ordering Provider/Ordering MD: Quang Nayak Date of Service: 12/25/19 Procedure(s): US gall bladder 89910 Accession Number(s): [id number] Report Number: [id number] WS: [id number] RIGHT UPPER QUADRANT ULTRASOUND HISTORY: RUQ tenderness with nausea COMPARISON: 08/16/2019 Liver: 17.5 cm in length. Normal size and echogenicity with no intrahepatic dilatation. No mass. Gallbladder: Normally distended gallbladder with no stones or wall thickening. CBD: 0.5 cm Pancreas: Normal size and echogenicity. Right kidney: 11.0 cm in length. Normal echogenicity with no mass or hydronephrosis. Aorta and IVC: Unremarkable. No ascites. US/US gall bladder [id number] IMPRESSION: Normal RIGHT upper quadrant ultrasound. Dictated By: Laverne Mcfarland DO Signed By: Laverne Mcfarland DO Signed Date/Time: 12/25/19 1410 DD/ 1409 CT Abd/Pel: Attestation: I personally reviewed and interpreted this imaging study as follows: Radiologist's impression: [place] [address] CT Scan Report Signed Patient: Tristian Anthony Unit #: [id number] : 1960 Age/Sex: 59 / F ADM Date: 12/25/19 Loc: ER Room/Bed: Attending Dr: Ordering Provider/Ordering MD: Quang Nayak Date of Service: 12/25/19 Procedure(s): CT abdomen pelvis w con* [id number] Accession Number(s): [id number] Report Number: [id number] WS: [id number] CT ABDOMEN AND PELVIS WITH CONTRAST HISTORY: abdominal pain (RUQ) w/ nausea TECHNIQUE: Imaging performed of the abdomen and pelvis with IV contrast. Single phase imaging of the abdomen. Coronal and sagittal reformats are submitted. All CT scans at [facility] use at least one of these dose optimization techniques: automated exposure control; mA and/or kV adjustment per patient size (includes targeted exams where dose is matched to clinical indication); or iterative reconstruction. IV CONTRAST: Omnipaque 300; 95 mL IV. Oral contrast: No DLP: 1556.52 mGy.cm COMPARISON: 08/16/2019 Lower thorax: Mild dependent changes at the lung bases. Heart is normal size. Small hiatal hernia. Liver/biliary system: There is very slight dilatation of the intrahepatic ducts which is similar to the prior study. No mass. Gallbladder: Normal. No gallstones or wall thickening. No pericholecystic fl uid. Pancreas: Body of the pancreas is negative. There is some very minimal stranding around the uncinate process. Stranding at the pancreatic head is improved. No duct dilatation. Spleen: Normal. Adrenal glands: Normal. Right kidney: Normal. Left kidney: Normal. Aorta: Mild atherosclerosis aorta. No aneurysm. Lymphadenopathy: None. Free fluid: None. GI tract: Normal appendix. Mild fecal retention. Numerous diverticula in the LEFT colon. No acute inflammation. Abdominal wall: Unremarkable abdominal wall. No hernia. Pelvis: Normally distended urinary bladder. Uterus and ovaries are negative. No adenopathy. Bones: No osteoblastic or osteolytic bone disease. CT/CT abdomen pelvis w con* [id number] IMPRESSION: 1. Very minimal changes of acute pancreatitis centered to the uncinate process of the pancreas. 2. No pseudocyst or abscess. 3. Small hiatal hernia. 4. Normal appendix. 5. Distal colon diverticulosis without acute diverticulitis. Dictated By: Laverne Mcfarland DO Signed By: Laverne Mcfarland DO Signed Date/Time: 12/25/191516 DD/ 09 Discharge Plan Discharge Patient Disposition: Home, Self-Care Clinical Impression: Pancreatitis Qualifiers: Chronicity: acute Pancreatitis type: unspecified pancreatitis type Acute pancreatitis complication: no infection or necrosis Qualified Code(s): K85.90 - Acute pancreatitis without necrosis or infection, unspecified Condition: Stable Prescriptions: New Zofran 4 mg tablet 4 mg PO DAILY Qty: 20 RF: 0 No Action temazepam 15 mg capsule 15 mg PO BEDTIME RF: 0 fluoxetine 20 mg capsule 60 mg PO DAILY RF: 0 Zyrtec 10 mg Tablet 10 mg PO DAILY RF: 0 atenolol 50 mg Tablet 50 mg PO DAILY RF: 0 Nexium 20 mg Capsule,Delayed Release(Dr/Ec) 20 mg PO DAILY RF: 0 Discharge Orders: Discharge Order (Routine); Ordered 12/25/19 Ordered By: Quang Nayak Referrals: Devin Oswald DO [Primary Care Provider] - Discharge Diet: Advance as tolerated, Clear Liquid and Full LIquid Discharge Activity: Increase activity as tolerated Patient Instructions: Pancreatitis (ED) Activity Restrictions/Additional Instructions: Call PCP tomorrow to either set up an appointment with them or get a referral to GI specialist. Take the prescribed hydrocodone as needed for any pain. You can take the Zofran as needed for any nausea. You can drink fluids especially water to stay hydrated but n.p.o. for the first 24 hours and then slowly start advancing your diet as tolerated. Discharge Date/Time: 12/25/19 17:00 Coding Level of Care Code ED Airplane Navigator for Chg Fwd Exam Comprehensive
--- NOTE | 2019-12-25 13:32 | US_ITS ---
WS: [id number] RIGHT UPPER QUADRANT ULTRASOUND HISTORY: RUQ tenderness with nausea COMPARISON: 08/16/2019 Liver: 17.5 cm in length. Normal size and echogenicity with no intrahepatic dilatation. No mass. Gallbladder: Normally distended gallbladder with no stones or wall thickening. CBD: 0.5 cm Pancreas: Normal size and echogenicity. Right kidney: 11.0 cm in length. Normal echogenicity with no mass or hydronephrosis. Aorta and IVC: Unremarkable. No ascites. US/US gall bladder [id number] IMPRESSION: Normal RIGHT upper quadrant ultrasound.
[2019-12-25 13:42] LABS: Basophils # 0.1 10^3/uL (0.0-0.1); Basophils % 0.7 %; Eosinophils # 0.1 10^3/uL (0.0-0.8); Eosinophils % 0.8 %; Hemoglobin 15.1 g/dL (11.5-15.3); Mean Corpuscular HGB Conc 34.3 g/dL (30.0-36.0); Mean Corpuscular Volume 90.3 fL (81-99); Mean Platelet Volume 9.6 fL (7.4-10.4); Monocytes # 0.8 10^3/uL (0.2-0.9); Monocytes % 7.6 %; Neutrophils # 7.6 10^3/uL (1.8-7.7); Neutrophils % 71.6 %; Nucleated Red Blood Cells % 0 %; Platelet Count 263 10^3/cmm (130-400); Red Blood Count 4.87 10^6/uL (4.1-5.3); Red Cell Distribution Width 12.4 % (12.1-15.1); White Blood Count 10.6 10^3/uL (4.0-10.0)
[2019-12-25] MEDS: ondansetron 2 mg/ML SDV 2 mL 4 MG IVP (13:46)
[2019-12-25] MEDS: sodium chloride 0.9% 1,000 ML 999 ML IV (13:46)
[2019-12-25] MEDS: morphine 4 mg/mL SDV 1 mL IVP ×2 (13:46→15:42)
[2019-12-25 13:58] LABS: Alanine Aminotransferase 22 U/L (0-33); Albumin Level 4.2 g/dL (3.5-5.2); Alkaline Phosphatase 89 IU/L (35-105); Anion Gap 16.1 (5-19); Aspartate Amino Transferase 19 U/L (0-32); Blood Urea Nitrogen 15 mg/dL (8-23); Calcium 9.9 mg/dL (8.5-10.5); Carbon Dioxide 23 mmol/L (22-29); Chloride 98 mmol/L (98-107); Globulin 2.4 g/dL (1.3-4.6); Glomerular Filtration Rate 125.9 mL/min (90-130); Glucose 105 mg/dL (65-115); Lipase 36 U/L (13-60); Osmolality Calculated 273 mOsm/kg (285-295); Potassium 4.1 mmol/L (3.5-5.1); Sodium 133 mmol/L (136-145); Total Bilirubin 0.3 mg/dL (0.15-1.2); Total Protein 6.6 g/dL (6.6-8.7)
--- NOTE | 2019-12-25 14:16 | CT_ITS ---
WS: [id number] CT ABDOMEN AND PELVIS WITH CONTRAST HISTORY: abdominal pain (RUQ) w/ nausea TECHNIQUE: Imaging performed of the abdomen and pelvis with IV contrast. Single phase imaging of the abdomen. Coronal and sagittal reformats are submitted. All CT scans at [facility] use at least one of these dose optimization techniques: automated exposure control; mA and/or kV adjustment per patient size (includes targeted exams where dose is matched to clinical indication); or iterativ e reconstruction. IV CONTRAST: Omnipaque 300; 95 mL IV. Oral contrast: No DLP: 1556.52 mGy.cm COMPARISON: 08/16/2019 Lower thorax: Mild dependent changes at the lung bases. Heart is normal size. Small hiatal hernia. Liver/biliary system: There is very slight dilatation of the intrahepatic ducts which is similar to t he prior study. No mass. Gallbladder: Normal. No gallstones or wall thickening. No pericholecystic fluid. Pancreas: Body of the pancreas is negative. There is some very minimal stranding around the uncinate process. Stranding at the pancreatic head is improved. No duct dilatation. Spleen: Normal. Adrenal glands: Normal. Right kidney: Normal. Left kidney: Normal. Aorta: Mild atherosclerosis aorta. No aneurysm. Lymphadenopathy: None. Free fluid: None. GI tract: Normal appendix. Mild fecal retention. Numerous diverticula in the LEFT colon. No acute inf lammation. Abdominal wall: Unremarkable abdominal wall. No hernia. Pelvis: Normally distended urinary bladder. Uterus and ovaries are negative. No adenopathy. Bones: No osteoblastic or osteolytic bone disease. CT/CT abdomen pelvis w con* [id number] IMPRESSION: 1. Very minimal changes of acute pancreatitis centered to the uncinate process of the pancreas. 2. No pseudocyst or abscess. 3. Small hiatal hernia. 4. Normal appendix. 5. Distal colon diverticulosis without acute diverticulitis.
[2019-12-25] MEDS: iohexol 300 mg/mL 100 mL Btl IV (15:00)
== END 2019-12-25 17:00 | disposition home or self-care (01) ==
PROVIDERS: Emergency Provider Physician Assistant; Family Provider Family Medicine; PCP Family Medicine
DX: K85.90 Acute pancreatitis without necrosis or infection, unspecified (principal); I10 Essential (primary) hypertension; Z86.73 Personal history of transient ischemic attack (TIA), and cerebral infarction without residual deficits; Z87.891 Personal history of nicotine dependence
CPT/HCPCS: 12345; 36415; 74177; 76705; 80053; 83690; 85025; 96361; 96374; 96375; 96376; 99283; J2270; J2405; J7030; Q9967

== ENCOUNTER 2020-06-04 12:00 | Outpatient (CLI) | payer OTHER, SELFPAY | END 2020-06-04 12:01 | disposition home or self-care (01) | LOC: SLEEP 06-05 10:06 | PROVIDERS: PCP Internal Medicine; Visit Provider Internal Medicine | DX: G47.00 Insomnia, unspecified (principal) | CPT/HCPCS: G0399 ==

== ENCOUNTER 2020-06-11 13:45 | Outpatient (CLI) | payer OTHER, SELFPAY ==
--- NOTE | 2020-06-11 15:26 | XR_ITS ---
WS: [id number] Bone mineral density performed on a WiFi Rail IDXA 06/11/2020 Clinical data: SCREENING FOR OSTEOPOROSIS Findings: The first 4 lumbar vertebral bodies demonstrated the bone mineral density of 0.943 g/cm2 for a young adult T score of -2.0. Measurement of the left hip reveals a bone mineral density of 0.827 g/cm2 with a young adult T score of -1.4. Measurement of the right hip reveals the bone mineral density of 0.795 g/cm2 for young adult T score of -1.7. XR/XR DEXA axial skeleton* [id number] Impression: 1. Osteopenia of the lumbar spine. 2. Osteopenia of both hips.
== END 2020-06-11 13:46 | disposition home or self-care (01) ==
LOC: RADWPI 13:49
PROVIDERS: PCP Internal Medicine; Visit Provider Internal Medicine
DX: Z13.820 Encounter for screening for osteoporosis (principal); M85.89 Other specified disorders of bone density and structure, multiple sites
CPT/HCPCS: 77080

== ENCOUNTER → 2020-06-25 15:01 | Outpatient (BNVA) | payer OTHER, SELFPAY | PROVIDERS: PCP Internal Medicine; Visit Provider Surgery | DX: K29.80 Duodenitis without bleeding (principal); Z12.11 Encounter for screening for malignant neoplasm of colon; K85.90 Acute pancreatitis without necrosis or infection, unspecified | CPT/HCPCS: 87635 ==

== ENCOUNTER 2020-07-01 08:16 | Day surgery (SDC) | payer OTHER, SELFPAY ==
[2020-06-25 13:24] VITALS: BMI 29.0
[2020-07-01 08:40] VITALS: BP 111/75; PULSE 78; RESP 18; TEMP 36.2; O2SAT 97
[2020-07-01] MEDS: sodium chloride 0.9% 1,000 ML 30 ML IV (08:57)
--- NOTE | 2020-07-01 09:02 | ANES.PREANE2 ---
Pre-Anesthetic Assessment Pre-Anesthetic Assessment: Height/Weight: Height 1.68 m Weight 81.647 kg Temp Pulse Resp BP Pulse Ox 97.1 F L 78 18 111/75 97 07/01/20 08:40 07/01/20 08:40 07/01/20 08:40 07/01/20 08:40 07/01/20 08:40 Preop Diagnosis: hx pancreatitis Proposed Procedure: Operation Date: 07/01/20 09:30 Proposed Procedures p EGD [id number] 16829 K29.80 Z12.11(Not Applicable) - Reji Merchant MD s Colonoscopy(Not Applicable) - Reji Merchant MD Familial anesthetic complications: None Was Beta Nel taken within 24 hours: Yes Last intake: Intake Last Liquid Date 06/30/20 Last Liquid Time 23:30 Last Solid Date 06/29/20 Last Solid Time 18:30 Social: Social History: No alcohol and No tobacco Exam: Pre-Anes Outpt Exam: alert, oriented x 3, clear to auscultation bilaterally and regular rate & rhythm Airway: Cervical ROM: WNL MP: 1 Dentition: Partials Pulmonary: Pulmonary: Sleep apnea (getting CPAP on the ) CV/HEM: CV/HEM: HTN GI: GI: GERD Comments: hx pancreatitis Metabolic: Comments: being worked up for óscar's Anesthetic Plan: ASA status: 2 Anesthesia: MAC Risk of > 500 ml blood loss (7ml/kg in children): No Meds/Allergies Current Medications: Current Medications Generic Name Dose Route Start Last Admin Trade Name Freq PRN Reason Stop Dose Admin Sodium Chloride 1,000 mls @ 30 ml s/hr 07/01/20 08:45 07/01/20 08:57 Sodium Chloride 0.9% IV 07/02/20 08:44 30 mls/hr .Q24H XAVIER Administration PFSH Anesthesia PFSH: Medical History HTN (hypertension) IBS (irritable bowel syndrome) TIA (transient ischemic attack) Surgical History History of History of tubal ligation Family History Mother Polymyalgia rheumatica Father Abdominal aortic aneurysm Other CAD (coronary artery disease) Cancer Hypertension Denies family history of Anesthesia complication Bleeding disorder Social History Smoking and tobacco status: former smoker Quit status (tobacco): has quit using tobacco Year quit tobacco: Several years ago, last cigarette was today Alcohol intake: current Alcohol intake frequency: holidays/special occasions only Alcohol type: wine Lives independently: Yes Household members: spouse Housing: House Marital status: Current occupational status: employed History of recent travel: No Data Anesthesia Cardiac Studies: No Data to Display
--- NOTE | 2020-07-01 09:51 | W.PM.OPSUD ---
Surgery/Procedure H&P Update DATE OF PROCEDURE: July 01, 2020 DATE H&P PERFORMED: 06/10/20 H&P UPDATE INFORMATION: I have reviewed H&P completed within last 30 days, I have examined patient prior to procedure and No changes to prior documentation PREOP DIAGNOSIS: hx pancreatitis PLANNED PROCEDURE: Operation Date: 07/01/20 09:30 Proposed Procedures p EGD [id number] 26315 K29.80 Z12.11(Not Applicable) - Reji Merchant MD s Colonoscopy(Not Applicable) - Reji Merchant MD
[2020-07-01 10:46] VITALS: BP 128/89; PULSE 66; RESP 16; TEMP 36.3; O2SAT 96
--- NOTE | 2020-07-01 10:58 | ANE.PACU2 ---
Inpatient post-anesthesia follow up: Airway intact: Yes Vital signs: Temperature 97.4 F Pulse Rate 66 Respiratory Rate 16 Blood Pressure 128/89 Pulse Oximetry 96 Oxygen Delivery Me thod Nasal Cannula Oxygen Flow Rate 2 Fraction of Inspir ed Oxygen Hydration adequate: Yes Nausea and vomiting: No Pain level: 2 Mental status: Baseline
[2020-07-01 11:00] VITALS: BP 160/100; PULSE 63; RESP 16; TEMP 36.3; O2SAT 96
== END 2020-07-01 11:40 | disposition home or self-care (01) ==
PROVIDERS: PCP Internal Medicine; Visit Provider Surgery
PROC: 0DJ08ZZ Inspection of Upper Intestinal Tract, Via Natural or Artificial Opening Endoscopic (ICD-10-PCS; CPT 43235; principal; 2020-07-01 09:30)
PROC: 0DJD8ZZ Inspection of Lower Intestinal Tract, Via Natural or Artificial Opening Endoscopic (ICD-10-PCS; CPT 45378; 2020-07-01 09:30)
DX: Z12.11 Encounter for screening for malignant neoplasm of colon (principal); K29.70 Gastritis, unspecified, without bleeding; K29.80 Duodenitis without bleeding; K57.30 Diverticulosis of large intestine without perforation or abscess without bleeding; K64.8 Other hemorrhoids; I10 Essential (primary) hypertension; G47.30 Sleep apnea, unspecified; K21.9 Gastro-esophageal reflux disease without esophagitis; Z86.73 Personal history of transient ischemic attack (TIA), and cerebral infarction without residual deficits; Z87.891 Personal history of nicotine dependence
CPT/HCPCS: 12345; 43239; 45378; 88305; J2704; J7030

== ENCOUNTER 2020-07-18 13:29 | Outpatient (CLI) | payer OTHER, SELFPAY ==
--- NOTE | 2020-07-18 13:35 | MM_ITS ---
WS: [id number] SCREENING DIGITAL MAMMOGRAM WITH CAD HISTORY: SCREENING COMPARISON: 10/25/2014 Bilateral CC and MLO views submitted. Computer aided detection analyzed. Breast composition: There are scattered areas of fibroglandular density. 8mm nodule in the anterior RIGHT breast just posterior to the nipple. New irregular nodule near 12:00 measuring 5 mm RIGHT breast. LEFT breast is unchanged. MM/[place] [id number] IMPRESSION: BI-RADS: 0-Incomplete: Need additional imaging evaluation FOLLOW UP: Need Additional Imaging RIGHT breast: Spot compression views (CC and MLO). True ML. Ultrasound to follo w if abnormality persists. There are 2 areas in the RIGHT breast for which additional views are recommende kalyani
== END 2020-07-18 13:30 | disposition home or self-care (01) ==
LOC: RADSHAW 13:31
PROVIDERS: PCP Internal Medicine; Visit Provider Internal Medicine
DX: Z12.31 Encounter for screening mammogram for malignant neoplasm of breast (principal); N63.15 Unspecified lump in the right breast, overlapping quadrants
CPT/HCPCS: 77067

== ENCOUNTER 2020-08-12 08:44 | Outpatient (CLI) | payer OTHER, SELFPAY ==
--- NOTE | 2020-08-12 08:53 | US_ITS ---
WS: [id number] ADDITIONAL VIEWS RIGHT BREAST RIGHT breast ultrasound. Limited. HISTORY: ABNORMAL MAMMOGRAM RT BREAST COMPARISON: 12/01/2006, 11/04/2011, 10/25/2014 and 09/12/20172019. Compression views right CC and MLO projection. True ML also submitted. Slightly lobulated asymmetry with spiculation and mild distortion near 11-12 o'clock of the RIGHT miguel ast that are middle to posterior depth measures 9 mm. New since 2014. Ultrasound to follow. Well-circumscribed nodule at 6:00, just posterior to the nipple has been present since at least 2011 therefore likely benign. Ultrasound will also be obtained. RIGHT breast ultrasound. Ultrasound at 6:00 of the RIGHT breast demonstrates a well-circumscribed hypoechoic mass measuring 8 x 8 x 5 mm. Due to its long-term presence no additional workup is necessary. At 11:00, 4 cm from the nipple is a hypoechoic mass which is very minimally lobulated. This mass sergio ures 6 x 7 x 4 mm. The size and appearance by ultrasound are not concordant with the mammographic fin dings. I'm not sure this is the same area seen by mammography. US/US breast RT limited* [id number] IMPRESSION: BI-RADS: 4-Suspicious Finding-Biopsy Should Be Considered FOLLOW-UP: Biopsy Recommended 1. Stereotactic biopsy recommended of the 9 mm spiculated nodule with mild ass ociated distortion near 11-12 o'clock of the RIGHT breast. This is not definite ly identified by ultrasound. There is a hypoechoic mass at 11:00 but findings a re not concordant with the mammographic appearance. 2. Long-term stability of an additional nodule at 6:00. No additional workup n ecessary.
== END 2020-08-12 08:45 | disposition home or self-care (01) ==
LOC: RADSHAW 08:46
PROVIDERS: PCP Internal Medicine; Visit Provider Nurse Practitioner Family
DX: R92.8 Other abnormal and inconclusive findings on diagnostic imaging of breast (principal); N63.15 Unspecified lump in the right breast, overlapping quadrants
CPT/HCPCS: 76642; 77065

== ENCOUNTER 2020-08-21 11:51 | Outpatient (CLI) | payer OTHER, SELFPAY ==
--- NOTE | 2020-08-21 11:58 | MM_ITS ---
WS: [id number] STEREOTACTIC RIGHT BREAST BIOPSY WITH VACUUM ASSISTANCE HISTORY: ABNORMAL MAMMOGRAM RT BREAST, solid mass. No calcifications. This nodule is not seen by ultr asound. COMPARISON: 08/12/2020 and 07/18/2020 Procedure, risks and complications were explained to the patient. Medications and prior radiographs a re reviewed. RIGHT breast mass is located. Calcifications are targeted in the MLO projection. The skin is cleansed with ChloraPrep and anesthetized with 1% buffered lidocaine. Deeper soft tissues anesthetized with a combination of lidocaine and epinephrine. Small dermatome is made. Needle advanced into the RIGHT br east. Stereotactic imaging reveals appropriate positioning with respect to the mass. Multiple vacuum- assisted core biopsies are obtained. No complications were encountered. Biopsy clip is placed in the cavity. Post imaging reveals good placement of the clip. No migration. Pressures held for approximately 15 minutes. No bleeding. Dressing applied. Patient discharged with n o complications. There is no bleeding. With any questions or complications patient is to return. MM/MM biopsy RT vac assist [id number] IMPRESSION: 1. Uncomplicated RIGHT breast stereotactic biopsy. 2. Biopsy clip is appropriately positioned in the location of the biopsied mass . Pathology: Invasive ductal carcinoma. RECOMMENDATION: Follow-up with oncology and surgery.
--- NOTE | 2020-08-21 11:58 | MM_ITS ---
WS: [id number] STEREOTACTIC RIGHT BREAST BIOPSY WITH VACUUM ASSISTANCE HISTORY: ABNORMAL MAMMOGRAM RT BREAST, solid mass. No calcifications. This nodule is not seen by ultr asound. COMPARISON: 08/12/2020 and 07/18/2020 Procedure, risks and complications were explained to the patient. Medications and prior radiographs a re reviewed. RIGHT breast mass is located. Calcifications are targeted in the MLO projection. The skin is cleansed with ChloraPrep and anesthetized with 1% buffered lidocaine. Deeper soft tissues anesthetized with a combination of lidocaine and epinephrine. Small dermatome is made. Needle advanced into the RIGHT br east. Stereotactic imaging reveals appropriate positioning with respect to the mass. Multiple vacuum- assisted core biopsies are obtained. No complications were encountered. Biopsy clip is placed in the cavity. Post imaging reveals good placement of the clip. No migration. Pressures held for approximately 15 minutes. No bleeding. Dressing applied. Patient discharged with n o complications. There is no bleeding. With any questions or complications patient is to return. MM/[place] [id number] IMPRESSION: 1. Uncomplicated RIGHT breast stereotactic biopsy. 2. Biopsy clip is appropriately positioned in the location of the biopsied mass . Pathology: Invasive ductal carcinoma. RECOMMENDATION: Follow-up with oncology and surgery.
[2020-08-21 12:27] LABS: INR 0.99 (0.8-1.2)
[2020-08-28 08:13] LABS: Miscellaneous Test See Scanned Lab Rpt
== END 2020-08-21 11:52 | disposition home or self-care (01) ==
PROVIDERS: PCP Internal Medicine; Visit Provider Internal Medicine
DX: N63.10 Unspecified lump in the right breast, unspecified quadrant (principal); C50.911 Malignant neoplasm of unspecified site of right female breast
CPT/HCPCS: 19081; 77065; 85610; 88305; 88361; 88367; 88374

== ENCOUNTER 2020-09-24 12:00 | Outpatient (CLI) | payer OTHER, SELFPAY ==
--- NOTE | 2020-09-24 18:23 | ONC CON_ITS ---
Dr. Weinstein New Patient Note Patient: Tristian Anthony Unit #: [id number]: 1960 Dicatated By: Ryan Weinstein M.D.Date of Visit: Sep 24, 2020 Onc MED New Patient/Consult Referring Physician: Dr. Suad Kwon Chief Complaint: Breast cancer. History of Present Illness: This is a 59-year-old woman with grade 3 infiltrating ductal carcinoma of the right breast, ER/MO positive and HER-2/bogdan negative. She had presented with an abnormal screening mammogram, BI-RADS 0, with evidence of a new irregular nodule near the 12 o'clock position of the right breast measuring 5 mm. Her additional mammographic views and right breast ultrasound on 08/12/2020 were BI-RADS 4, suspicious. Mammographic findings included a slightly lobulated asymmetry with spiculation and mild distortion near the 11 to 12 o'clock position of the right breast measuring 9 mm, new from her previous study in 2014. A well-circumscribed nodule at the 6 o'clock position appeared unchanged since 2011. By ultrasound the 6:00 lesion appears well-circumscribed and had benign appearance. The 11:00 lesion showed a 6 x 7 x 4 mm hypoechoic mass. Biopsy was recommended. Stereotactic biopsy of the 11 o'clock position right breast lesion on 08/21/2020 showed grade 3 invasive ductal carcinoma. The breast prognostic profile showed ER positive at 90% and MO positive at 80%. It was negative for overexpression of HER-2/bogdan, 1+ by IHC and amplification ratio by FISH of 1.0 with 2.4 HER-2 copies/cell. The Ki-67 was borderline at 10%. She initially had surgical consultation with Dr. Merchant, and she was recommended to undergo lumpectomy/axillary sentinel lymph node biopsy. However, after further consideration, she preferred to have bilateral mastectomy with reconstruction. She was then seen by Dr. Quang Winkler and by Dr. Josey Ball, and on 09/22/2020 she underwent right total mastectomy with axillary sentinel lymph node biopsy, prophylactic left simple mastectomy, and bilateral breast reconstruction. Pathology from the mastectomy is still pending. She has been feeling pretty good generally, though during the past year or so she has felt unusually tired in the afternoons. She has good appetite. She has been on a keto diet, though recently she has gained a little weight. She does have multiple food allergies. She has not had fever. She does have hot flashes/sweating. She underwent natural menopause at age 49. She has had no hormone replacement therapy. Her breathing has been okay, though she is on CPAP for obstructive sleep apnea. She does not complain of cough and she has not had chest pain. She had an episode of pancreatitis/duodenitis about a year ago. She did have an EGD and colonoscopy in July. She has chronic loose stools and gas. She has no complaints. She has joint pain, particularly in the ankles and hands, and she has chronic back pain. She reports having tendinitis in her right elbow and she also has TMJ problems. Her pain, though, has improved significantly with chondroitin sulfate/glucosamine. She used to have migraine headaches. She does not have any focal neurologic symptoms. Past Medical History: Her medical history includes anxiety, degenerative arthritis, degenerative disease of the spine, history of pancreatitis/duodenitis, hypertension, irritable bowel syndrome, obstructive sleep apnea, and osteopenia. Past Surgical History: She underwent stereotactic right breast biopsy on 08/21/2020, and she underwent right total mastectomy with axillary sentinel lymph node biopsy, prophylactic left mastectomy, and bilateral breast reconstruction on 09/22/2020. Her other surgical/procedural history includes EGD and colonoscopy in 2019, and section and tubal ligation in 1991. Medications: Atenolol 1 (50 mg) Tablet Oral at bedtime, Calcium & Vit D3 Bone Health 1 Liquid Oral b.i.d., diphenhydrAMINE HCl 1 (50 mg) Tablet Oral at bedtime, FLUoxetine HCl 1 (60 mg) Tablet Oral every am, Glucosamine Chondroitin Joint 1 Tablet Oral daily, Loratadine 1 (10 mg) Tablet Oral daily, Ondansetron HCl 1 (4 mg) Tablet Oral q 4 hours, oxyCODONE-Acetaminophen 1 (5-325 mg/5mL) Solution Oral q 4 hours PRN, Pantoprazole Sodium 1 (40 mg) Tablet, enteric coated Oral daily, Simethicone 1 (80 mg) Tablet Oral daily PRN Allergies: [place], Banana, Barley, [place], Beef, Black Pepper, Bran, Cantaloupe, Cashew, Coconut, Codfish, Green Pea, Arnol, Lobster, Meperidine HCl, Mushrooms, Mustard, NSAIDs, Oats, Pineapple, Scallop, Sesame, and Shrimp. 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 She has a history of smoking less than 1 pack of cigarettes daily, from age [age]. She then smoked occasionally, typically not more than 2 cigarettes/day. She has had just very occasional alcohol use. Family History: Father at age 80 with fibrocystic lung disease. Mother had kidney cancer, but she with heart disease at age 75. A brother with embryonal cell carcinoma at age 27. Another at age 62 with metastatic cancer of undetermined primary. A sister in a house fire at age 42. Review Of Symptoms: Constitutional - For least the past year she has been feeling tired in the afternoon, enough to limit her activity. She has been on a keto diet. She recently gained about 10 pounds. She does have multiple food allergies. She has not had fever. She has had hot flashes/sweating for couple of years. ECOG score is 1, Eyes - No change in vision, ENMT - No hearing loss or tinnitus. She is always had sinus drainage. No mouth sores. No sore throat or difficulty swallowing, Hematologic/Lymphatic - She has had a little bruising, Respiratory - She has obstructive sleep apnea, but her breathing has been okay. No cough. No pleuritic pain or hemoptysis, Cardiovascular - No angina pain. No palpitations, Gastrointestinal - No nausea or vomiting. She has a history of duodenitis, and she had pancreatitis a year ago. She has chronically had loose stools and gas . No blood in the stool or black stools, Genitourinary (F) - No dysuria or hematuria. No urinary frequency. No urgency or incontinence, Musculoskeletal - She has joint pain, particularly any ankles and hands. She has chronic back pain. She has had tennis elbow on the right. She also has TMJ pain. Her pain, though, has improved with chondroitin sulfate/glucosamine, Integumentary - She previously has had problems with cutaneous yeast infection, Neurologic - She used to have migraine headaches. She occasionally has dizziness. No numbness or tingling. No other focal neurologic symptoms, Psychiatric - She has anxiety. She sleeps okay with CPAP and Benadryl. Vital Signs: Performed on Sep 24, 2020 12:51: 8, 4, 0.00, 0.00 sq.m, 96 %, 73 /min, 18 /min, 94/60 mm(hg), 98.3 F (LOW), and 196.6 lbs (HIGH). Physical Examination: Constitutional - She appears to be in good general health, Eyes - Sclerae nonicteric. Conjunctivae clear, ENMT - No lesions noted in the oral cavity, Neck - No mass or thyromegaly, Hematologic/Lymphatic - No cervical, clavicular, or axillary adenopathy, Respiratory - Lungs are clear with good air movement bilaterally, Cardiovascular - Heart rhythm is regular. There is no murmur, gallop, or rub noted, Breasts - She has recent bilateral mastectomies, Abdomen - Soft and non-tender. Liver and spleen are not enlarged. There is no abdominal mass or ascites noted and there is no inguinal adenopathy, Back/Spine - No spine or CVA tenderness noted, Extremities - No edema. Dorsalis pedis pulses are palpable bilaterally, Integumentary - No rashes. No suspicious skin lesions noted, Neurologic - No focal neurologic deficits noted. Problem List: 1. Grade 3 infiltrating ductal carcinoma of the right breast, ER/MO positive and HER-2/bogdan negative. She underwent right total mastectomy with axillary sentinel lymph node biopsy, prophylactic left simple mastectomy, and bilateral breast reconstruction on 09/22/2020. 2. Hypertension. 3. Obstructive sleep apnea. 4. Irritable bowel syndrome. 5. History of pancreatitis/duodenitis. 6. Degenerative arthritis/degenerative disease of the spine. 7. Osteopenia. 8. Chronic anxiety. Problems Addressed with this Encounter and Plan: 1. Grade 3 infiltrating ductal carcinoma of the right breast, ER/MO positive and HER-2/bogdan negative. Staging is incomplete. By imaging it appeared to be a T1b primary lesion. She underwent right total mastectomy with axillary sentinel lymph node biopsy, prophylactic left simple mastectomy, and bilateral breast reconstruction on 09/22/2020. Pathology on the mastectomy is still pending. Patient has undergone mastectomy for treatment of local/regional disease. She is aware that with invasive cancer she also will require systemic adjuvant therapy. We will need the final pathology report from the mastectomy procedure and results of Oncotype DX before making final recommendations. However, the indications thus far are favorable, and in all likelihood her adjuvant therapy will be limited to endocrine therapy with 5 years of treatment with an aromatase inhibitor. I did review expected side effects with the treatment, which may include osteoporosis and joint pain, among others. She is aware that there is still a possibility that adjuvant chemotherapy will be recommended. 2. She has osteopenia. I will review the results of her most recent DEXA scan. In all likelihood she will require treatment for bone health along with the aromatase inhibitor. Signed By: Ryan Weinstein M.D. <<Signature on File>>
== END 2020-09-24 12:01 | disposition home or self-care (01) ==
LOC: ONCMED 12:02
PROVIDERS: PCP Internal Medicine; Visit Provider Internal Medicine Medical Oncology
DX: C50.411 Malignant neoplasm of upper-outer quadrant of right female breast (principal); Z17.0 Estrogen receptor positive status [ER+]; F17.210 Nicotine dependence, cigarettes, uncomplicated; M85.80 Other specified disorders of bone density and structure, unspecified site; Z90.13 Acquired absence of bilateral breasts and nipples
CPT/HCPCS: 99205

== ENCOUNTER 2020-10-21 12:17 | Outpatient (CLI) | payer OTHER, SELFPAY ==
[2020-10-21 13:01] LABS: Basophils # 0.1 10^3/uL (0.0-0.1); Basophils % 0.6 %; Eosinophils # 0.2 10^3/uL (0.0-0.8); Eosinophils % 2.6 %; Hematocrit 40.4 % (37.0-47.0); Hemoglobin 13.8 g/dL (11.5-15.3); Lymphocytes # 2.2 10^3/uL (0.8-4.8); Lymphocytes % 26.2 %; Mean Corpuscular HGB Conc 34.2 g/dL (30.0-36.0); Mean Corpuscular Hemoglobin 31.9 pg (28.0-34.0); Mean Corpuscular Volume 93.5 fL (81-99); Mean Platelet Volume 9.7 fL (7.4-10.4); Monocytes # 0.6 10^3/uL (0.2-0.9); Monocytes % 7.1 %; Neutrophils # 5.34 10^3/uL (1.8-7.7); Neutrophils % 63.1 %; Nucleated Red Blood Cells % 0 %; Platelet Count 307 10^3/cmm (130-400); Red Blood Count 4.32 10^6/uL (4.1-5.3); Red Cell Distribution Width 12.7 % (12.1-15.1); White Blood Count 8.5 10^3/uL (4.0-10.0)
[2020-10-21 13:41] LABS: 25 Hydroxy Vitamin D 35 ng/mL (30-100); Alanine Aminotransferase 15 U/L (0-33); Albumin Level 3.9 g/dL (3.5-5.2); Alkaline Phosphatase 85 IU/L (35-105); Aspartate Amino Transferase 17 U/L (0-32); Blood Urea Nitrogen 17 mg/dL (8-23); Calcium 9.7 mg/dL (8.5-10.5); Carbon Dioxide 25 mmol/L (22-29); Chloride 97 mmol/L (98-107); Globulin 2.5 g/dL (1.3-4.6); Glomerular Filtration Rate 125.9 mL/min (90-130); Glucose 97 mg/dL (65-115); Osmolality Calculated 273 mOsm/kg (285-295); Sodium 131 mmol/L (136-145); Total Bilirubin 0.3 mg/dL (0.15-1.2); Total Protein 6.4 g/dL (6.6-8.7)
--- NOTE | 2020-10-29 23:06 | ONC FU_ITS ---
[facility] Patient Note Patient: Tristian Anthony Unit #: [id number]: 1960 Dictated By: Cristóbal SantosDate of Visit: Oct 21, 2020 Onc MED Follow-Up/Prog Note Chief Complaint: Breast cancer. History of Present Illness: Mrs Anthony is a 59-year-old woman with grade 3 infiltrating ductal carcinoma of the right breast, ER/LA positive and HER-2/bogdan negative. She had presented with an abnormal screening mammogram, BI-RADS 0, with evidence of a new irregular nodule near the 12 o'clock position of the right breast measuring 5 mm. Her additional mammographic views and right breast ultrasound on 08/12/2020 were BI-RADS 4, suspicious. Mammographic findings included a slightly lobulated asymmetry with spiculation and mild distortion near the 11 to 12 o'clock position of the right breast measuring 9 mm, new from her previous study in 2014. A well-circumscribed nodule at the 6 o'clock position appeared unchanged since 2011. By ultrasound the 6:00 lesion appears well-circumscribed and had benign appearance. The 11:00 lesion showed a 6 x 7 x 4 mm hypoechoic mass. Biopsy was recommended. Stereotactic biopsy of the 11 o'clock position right breast lesion on 08/21/2020 showed grade 3 invasive ductal carcinoma. The breast prognostic profile showed ER positive at 90% and LA positive at 80%. It was negative for overexpression of HER-2/bogdan, 1+ by IHC and amplification ratio by FISH of 1.0 with 2.4 HER-2 copies/cell. The Ki-67 was borderline at 10%. She initially had surgical consultation with Dr. Merchant, and she was recommended to undergo lumpectomy/axillary sentinel lymph node biopsy. However, after further consideration, she preferred to have bilateral mastectomy with reconstruction. She was then seen by Dr. Quang Winkler and by Dr. Josey Ball, and on 09/22/2020 she underwent right total mastectomy with axillary sentinel lymph node biopsy, prophylactic left simple mastectomy, and bilateral breast reconstruction. Pathology from the mastectomy: The left simple mastectomy was benign breast tissue the breast right simple mastectomy reported grade 1 invasive ductal carcinoma the invasive carcinoma measured 0.8 cm in greatest dimension. The margins were free of tumor. She has been feeling pretty good generally, though during the past year or so she has felt unusually tired in the afternoons. She has good appetite. She has been on a keto diet, though recently she has gained a little weight. She does have multiple food allergies. She has not had fever. She does have hot flashes/sweating. She underwent natural menopause at age 49. She has had no hormone replacement therapy. Her breathing has been okay, though she is on CPAP for obstructive sleep apnea. She does not complain of cough and she has not had chest pain. She had an episode of pancreatitis/duodenitis about a year ago. She did have an EGD and colonoscopy in July. She has chronic loose stools and gas. She has no complaints. She has joint pain, particularly in the ankles and hands, and she has chronic back pain. She reports having tendinitis in her right elbow and she also has TMJ problems. Her pain, though, has improved significantly with chondroitin sulfate/glucosamine. She used to have migraine headaches. She does not have any focal neurologic symptoms. She did see Dr. Weinstein for further follow-up. Her Oncotype DX recurrence score was 23. The distant recurrence rate at 9 years with aromatase inhibitor or tamoxifen alone was 9% and the group average absolute chemotherapy benefit was less than 1%. Mrs Anthony is here today for followup after starting aromatase inhibitor with anastrozole. She been on the anastrozole for approximately 2 weeks. She states that she has been having significant headaches at night after she takes the anastrozole. She is having joint pain particularly in her hips knees and it is limiting her activity. She states the pain from the headache and the joint pain is not really relieved with the Tylenol and she is actually tried Motrin with no relief either. She denies any rash. She has had no recurrent hot flashes. She denies any joint swelling or redness. She states it is enough that it is affecting her quality of life and her ability to get around. She states going up and down stairs is difficult and she tries to avoid it if she can. She also states that getting up and down her knees are pretty uncomfortable as well. She has not tried holding the anastrozole to see if these discomforts go away. Regards to her bone health she states she is taking calcium and vitamin D. Prior to starting the anastrozole she had been trying to implement some walking routine but is unable to do that currently because of the joint pain. She has had some fatigue states she is not sure that really much worse than what it had been. She states she been sleeping a lot in the afternoon prior to her diagnosis. She is recovering well from surgery. She still working with Dr. Ball regarding reconstruction. She sees her later this week. She denies any problems with her bowels or bladder. She denies any shortness of breath or orthopnea. Her ECOG is 1 due to the joint pain and headache. Past Medical History: Anxiety Degenerative arthritis Degenerative disease of the spine History of pancreatitis/duodenitis Hypertension Irritable bowel syndrome Obstructive sleep apnea Osteopenia Past Surgical History: Bilateral mastectomy, axillary sentinel lymph node biopsy, and breast reconstruction in 2020 Stereotactic right breast biopsy in 2020 EGD and colonoscopy in 2019 section and tubal ligation in 1991 Allergies: [place], Banana, Barley, [place], Beef, Black Pepper, Bran, Cantaloupe, Cashew, Coconut, Codfish, Green Pea, Arnol, Lobster, Meperidine HCl, Mushrooms, Mustard, NSAIDs, Oats, Pineapple, Scallop, Sesame, and Shrimp. Medications: Atenolol 1 (50 mg) Tablet Oral at bedtime Calcium & Vit D3 Bone Health 1 Liquid Oral b.i.d. diphenhydrAMINE HCl 1 (50 mg) Tablet Oral at bedtime FLUoxetine HCl 1 (60 mg) Tablet Oral every am Glucosamine Chondroitin Joint 1 Tablet Oral daily Loratadine 1 (10 mg) Tablet Oral daily Ondansetron HCl 1 (4 mg) Tablet Oral q 4 hours oxyCODONE-Acetaminophen 1 (5-325 mg/5mL) Solution Oral q 4 hours PRN Pantoprazole Sodium 1 (40 mg) Tablet, enteric coated Oral daily Simethicone 1 (80 mg) Tablet Oral daily PRN Family History: Ms. Anthony's mother at age 75: polymyalgia rheumatica. Ms. Velozs father at age 80: abdominal aortic aneurysm, and Fibrocystic Lung Disease. Ms. Anthony has 2 brothers: 2 . Ms. Anthony's first brother's embryonal. Another brother's metastatic cancer(unknown primary). She has 4 sisters: 3 alive, 1 . Ms. Anthony's first sister's house fire. Father at age 80 with fibrocystic lung disease. Mother had kidney cancer, but she with heart disease at age 75. A brother with embryonal cell carcinoma at age 27. Another at age 62 with metastatic cancer of undetermined primary. A sister in a house fire at age 42. 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 Ms. Anthony has never smoked. She drinks occasionally. Ms. Anthony reports the following support systems: lives with spouse, significant other, family, or friends. Review Of Symptoms: Constitutional Denies fevers, chills, night sweats, excessive fatigue or weight loss. Some fatigue. Allergic/Immunologic No reactions. Eyes Denies significant visual changes. No diplopia. No amaurosis. ENMT Denies changes in hearing, sore throat, mouth sores, difficulty or changes in swallowing ability, and/or sinus drainage. Hematologic/Lymphatic Denies easy bruising or bleeding. The patient denies any tender or palpable lymph nodes. Respiratory Denies dyspnea on exertion, chest pain, cough or hemoptysis. Denies orthopnea. Cardiovascular Denies anginal chest pain, palpitations or orthopnea. Gastrointestinal Denies nausea, vomiting, diarrhea, GI bleeding, or constipation. Denies change in bowel habits and/or stool color, no heartburn or early satiety. Genitourinary (F) No hematuria, hesitancy, incontinence, vaginal bleeding, discharge or other problems with urination. Musculoskeletal see above Integumentary Denies chronic rashes, inflammation, ulcerations or skin changes. Neurologic Denies blurred vision, and no areas of focal weakness or numbness. Normal gait. No sensory problems. Psychiatric Denies insomnia, depression, hilary or mood swings. Vital Signs: Performed on Oct 21, 2020 14:03 Height - 67 in Weight - 191.4 lbs (LOW) BSA - 1.98 sq.m BMI - 29.98 Temperature - 97.3 F (LOW) Pulse - 82 /min Respiration - 19 /min BP - 155/84 mm(hg) (HIGH) O2 Sat - 96 % Pain - 0,1 - No physically strenuous activity, but ambulatory and able to carry out light or sedentary work (e.g. office work, light house work). (ECOG) Physical Examination: Constitutional Alert, oriented, no acute distress. Skin pink, warm and dry. Head Normocephalic; atraumatic. Eyes Conjunctivae and sclerae are clear and without icterus. Pupils are reactive and equal. Neck Supple without masses or thyromegaly. No jugular venous distension. Hematologic/Lymphatic No petechiae or purpura. No tender or palpable lymph nodes in the cervical or supraclavicular areas. Respiratory Lungs are clear to auscultation without rhonchi or wheezing. Cardiovascular Regular rate and rhythm of heart without murmurs,clicks, gallops or rubs. Breasts Bilateral mastectomy sites have healed well, no redness or exudate. Abdomen Non-tender, non-distended, no masses or ascites. Good bowel sounds noted in all quads. No guarding or rebound tenderness. No pulsatile masses. Back/Spine Non-tender to palpation. Extremities No visible deformities, no cyanosis, clubbing or edema. Musculoskeletal No tenderness or swelling, normal range of motion without obvious weakness. Integumentary No rashes or lesions. Neurologic No sensory or motor deficits, normal cerebellar function, normal gait. Psychiatric Alert and oriented times three. Coherent speech. Verbalizes understanding of our discussions today. Laboratory:Test performed on Oct 21, 2020 12:40 Sodium 131 mmol/L Vitamin D (25-Hydroxy), Total 35 ng/mL Potassium 4.0 mmol/L Chloride 97 mmol/L CO2 25 mmol/L Anion Gap 13.0 BUN 17 mg/dL Creatinine 0.5 mg/dL Cr Clearance (Est) 163.99 mL/min eGFR 125.9 mL/min Glucose 97 mg/dL Osmolality - Calculated 273 mOsm/kg Calcium 9.7 mg/dL Protein, Total 6.4 g/dL Albumin 3.9 g/dL Globulin 2.5 g/dL Bilirubin, Total 0.3 mg/dL ALT (SGPT) 15 U/L AST (SGOT) 17 U/L Alkaline Phosphatase 85 IU/L WBC 8.5 10 3/uL RBC 4.32 10 6/uL HGB 13.8 g/dL HCT 40.4 % MCV 93.5 fL MCH 31.9 pg MCHC 34.2 g/dL RDW 12.7 % Platelet Count 307 10 3/cmm MPV 9.7 fL Neutrophils 5.34 10 3/uL Lymphocytes 2.2 10 3/uL Monocytes 0.6 10 3/uL Eosinophils 0.2 10 3/uL Basophils 0.1 10 3/uL Neutrophil % 63.1 % Lymphocyte % 26.2 % Monocyte % 7.1 % Eosinophil % 2.6 % Basophils % 0.6 % NRBC % 0 % Impression: 1. Grade 3 infiltrating ductal carcinoma of the right breast, ER/LA positive and HER-2/bogdan negative. She underwent right total mastectomy with axillary sentinel lymph node biopsy, prophylactic left simple mastectomy, and bilateral breast reconstruction on 09/22/2020. 2. Hypertension. 3. Obstructive sleep apnea. 4. Irritable bowel syndrome. 5. History of pancreatitis/duodenitis. 6. Degenerative arthritis/degenerative disease of the spine. 7. Osteopenia. 8. Chronic anxiety. Plan: 1. Grade 3 infiltrating ductal carcinoma of the right breast, ER/LA positive and HER-2/bogdan negative. Staging is incomplete. By imaging it appeared to be a T1b primary lesion. She underwent right total mastectomy with axillary sentinel lymph node biopsy, prophylactic left simple mastectomy, and bilateral breast reconstruction on 09/22/2020. Pathology from the mastectomy: The left simple mastectomy was benign breast tissue the breast right simple mastectomy reported grade 1 invasive ductal carcinoma the invasive carcinoma measured 0.8 cm in greatest dimension. The margins were free of tumor. Her Oncotype DX recurrence score was 23. The distant recurrence rate at 9 years with aromatase inhibitor or tamoxifen alone was 9% and the group average absolute chemotherapy benefit was less than 1%. Based on the current pathology and Oncotype DX score, the recommended therapy is aromatase inhibitor for 5 years. She began anastrazole on 10/07/2020. A. She is having significant side effects with the Armidex. she is having significant headaches and joint pain. B. I have asked her to hold the Armidex for 1-2 weeks to see if her symptoms resolve. C. If her symptoms resolve, we can try rechallenging her as she does have a 90 day supply of the Armidex, if the symptoms recur, she can try exemustane next. D. After discussion with Dr Weinstein, she can try Tamoxifen if she has difficulty with the Armidex and exemustane. E. Today's labs reviewed in detail and discussed with Ms. De La Vega copy was given to her. WBC 6.5, hemoglobin 13.8, platelets 307,000 neutrophils 5340. Potassium 4.0 creatinine 0.5 LFTs are normal vitamin D level is 35. 2. She has osteopenia. A. In all likelihood she will require treatment for bone health along with the aromatase inhibitor if she can tolerate it. B. Did not pursue any formal treatment for the osteopenia today given that she already has joint pain and the aromatase inhibitor was placed on hold today. C. She is currently taking calcium and vitamin D. Her vitamin D level was 35 today. She is taking her calcium/vitamin D twice daily. D. We discussed weightbearing exercises such as walking and healthy for joint pain left side she can proceed with the walking program she had started prior to starting the aromatase inhibitor. 3 follow-up plan A. Plan to see her back in 2 weeks to review how she is doing off of the aromatase inhibitor at that time. B. We will decide at that time whether or not to resume there Arimidex or change her to the exemestane. C. She is aware that if her joint pain does get better she can try rechallenging but to have low tolerance for the headache or pain as we can change her to another agent. D. Mrs. Anthony was instructed to contact us in interim should questions or problems arise. Signed By: Cristóbal Santos-DASH, AOCNP Ryan Weinstein MD <<Signature on File>>
== END 2020-10-21 12:18 | disposition home or self-care (01) ==
LOC: ONCMED 12:18
PROVIDERS: PCP Internal Medicine; Visit Provider Nurse Practitioner
DX: C50.411 Malignant neoplasm of upper-outer quadrant of right female breast (principal); Z17.0 Estrogen receptor positive status [ER+]; M85.80 Other specified disorders of bone density and structure, unspecified site; R51.9 Headache, unspecified; M25.50 Pain in unspecified joint; Z90.13 Acquired absence of bilateral breasts and nipples; Z79.811 Long term (current) use of aromatase inhibitors
CPT/HCPCS: 36415; 80053; 82306; 85025; 99214

== ENCOUNTER 2020-11-04 07:35 | Outpatient (CLI) | payer OTHER, SELFPAY ==
--- NOTE | 2020-11-15 12:02 | ONC FU_ITS ---
[facility] Patient Note Patient: Tristian Anthony Unit #: [id number]: 1960 Dictated By: Cristóbal SantosDate of Visit: Nov 04, 2020 Onc MED Follow-Up/Prog Note Chief Complaint: Breast cancer. History of Present Illness: Mrs Anthony is a 59-year-old woman with grade 3 infiltrating ductal carcinoma of the right breast, ER/WI positive and HER-2/bogdan negative. She had presented with an abnormal screening mammogram, BI-RADS 0, with evidence of a new irregular nodule near the 12 o'clock position of the right breast measuring 5 mm. Her additional mammographic views and right breast ultrasound on 08/12/2020 were BI-RADS 4, suspicious. Mammographic findings included a slightly lobulated asymmetry with spiculation and mild distortion near the 11 to 12 o'clock position of the right breast measuring 9 mm, new from her previous study in 2014. A well-circumscribed nodule at the 6 o'clock position appeared unchanged since 2011. By ultrasound the 6:00 lesion appears well-circumscribed and had benign appearance. The 11:00 lesion showed a 6 x 7 x 4 mm hypoechoic mass. Biopsy was recommended. Stereotactic biopsy of the 11 o'clock position right breast lesion on 08/21/2020 showed grade 3 invasive ductal carcinoma. The breast prognostic profile showed ER positive at 90% and WI positive at 80%. It was negative for overexpression of HER-2/bogdan, 1+ by IHC and amplification ratio by FISH of 1.0 with 2.4 HER-2 copies/cell. The Ki-67 was borderline at 10%. 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 She initially had surgical consultation with Dr. Merchant, and she was recommended to undergo lumpectomy/axillary sentinel lymph node biopsy. However, after further consideration, she preferred to have bilateral mastectomy with reconstruction. She was then seen by Dr. Quang Wnikler and by Dr. Josey Ball, and on 09/22/2020 she underwent right total mastectomy with axillary sentinel lymph node biopsy, prophylactic left simple mastectomy, and bilateral breast reconstruction. Pathology from the mastectomy: The left simple mastectomy was benign breast tissue the breast right simple mastectomy reported grade 1 invasive ductal carcinoma the invasive carcinoma measured 0.8 cm in greatest dimension. The margins were free of tumor. She has been feeling pretty good generally, though during the past year or so she has felt unusually tired in the afternoons. She has good appetite. She has been on a keto diet, though recently she has gained a little weight. She does have multiple food allergies. She has not had fever. She does have hot flashes/sweating. She underwent natural menopause at age 49. She has had no hormone replacement therapy. Her breathing has been okay, though she is on CPAP for obstructive sleep apnea. She does not complain of cough and she has not had chest pain. She had an episode of pancreatitis/duodenitis about a year ago. She did have an EGD and colonoscopy in July. She has chronic loose stools and gas. She has no complaints. She has joint pain, particularly in the ankles and hands, and she has chronic back pain. She reports having tendinitis in her right elbow and she also has TMJ problems. Her pain, though, has improved significantly with chondroitin sulfate/glucosamine. She used to have migraine headaches. She does not have any focal neurologic symptoms. She did see Dr. Weinstein for further follow-up. Her Oncotype DX recurrence score was 23. The distant recurrence rate at 9 years with aromatase inhibitor or tamoxifen alone was 9% and the group average absolute chemotherapy benefit was less than 1%. Mrs Anthony is here today for followup after re-starting aromatase inhibitor with anastrozole. She had been on the anastrozole initially for approximately 2 weeks. She began having significant headaches at night after she took the anastrozole. She was having joint pain particularly in her hips knees and it was limiting her activity. The anastrozole was placed on hold for approximately 1 to 2 weeks and her headaches and joint pain did resolve. However during this time she was informed by Laila Alva NP that she did have CHEK2 gene deleterious mutation. She has had bilateral mastectomies and her colonoscopy is up to date. She has attempted to inform her immediate family (siblings and children) of this finding. She did resume the anastrazole approximately 7 days ago. She has only had one headache but has had recurrent joint pain. She also now has a rash on her forearms, neck and anterior chest. It is red, slightly raised but non pustular or vesicular. It is somewhat itchy but not too bad . She states otherwise she feels like she is doing pretty well overall. She denies any mouth sores sore throat or difficulty swallowing. She has had no fever or chills. She denies any diarrhea or constipation. She has had no nausea or vomiting. She denies any other skin changes or rash. She denies any recent changes in hygiene products or laundry detergents. 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 Her ECOG is 1 due to the joint pain. Past Medical History: Anxiety Degenerative arthritis Degenerative disease of the spine History of pancreatitis/duodenitis Hypertension Irritable bowel syndrome Obstructive sleep apnea Osteopenia Past Surgical History: Bilateral mastectomy, axillary sentinel lymph node biopsy, and breast reconstruction in 2020 Stereotactic right breast biopsy in 2020 EGD and colonoscopy in 2019 section and tubal ligation in 1991 Allergies: [place], Banana, Barley, [place], Beef, Black Pepper, Bran, Cantaloupe, Cashew, Coconut, Codfish, Green Pea, Arnol, Lobster, Meperidine HCl, Mushrooms, Mustard, NSAIDs, Oats, Pineapple, Scallop, Sesame, and Shrimp. Medications: Atenolol 1 (50 mg) Tablet Oral at bedtime Calcium & Vit D3 Bone Health 1 Liquid Oral b.i.d. diphenhydrAMINE HCl 1 (50 mg) Tablet Oral at bedtime FLUoxetine HCl 1 (60 mg) Tablet Oral every am Glucosamine Chondroitin Joint 1 Tablet Oral daily Loratadine 1 (10 mg) Tablet Oral daily Ondansetron HCl 1 (4 mg) Tablet Oral q 4 hours oxyCODONE-Acetaminophen 1 (5-325 mg/5mL) Solution Oral q 4 hours PRN Pantoprazole Sodium 1 (40 mg) Tablet, enteric coated Oral daily Simethicone 1 (80 mg) Tablet Oral daily PRN Family History: Ms. Anthony's mother at age 75: polymyalgia rheumatica. Ms. Anthony's father at age 80: abdominal aortic aneurysm, and Fibrocystic Lung Disease. Ms. Anthony has 2 brothers: 2 . Ms. Anthony's first brother's embryonal. Another brother's metastatic cancer(unknown primary). She has 4 sisters: 3 alive, 1 . Ms. Anthony's first sister's house fire. Father at age 80 with fibrocystic lung disease. Mother had kidney cancer, but she with heart disease at age 75. A brother with embryonal cell carcinoma at age 27. Another at age 62 with metastatic cancer of undetermined primary. A sister in a house fire at age 42. Social History: Ms. 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 Ms. Anthony has never smoked. She drinks occasionally. Ms. Anthony reports the following support systems: lives with spouse, significant other, family, or friends. Review Of Symptoms: see above Vital Signs: Performed on Nov 04, 2020 12:05 Height - 67.00 in Weight - 194.2 lbs (HIGH) BSA - 2.00 sq.m BMI - 30.42 (HIGH) Temperature - 98.4 F Pulse - 78 /min Respiration - 18 /min BP - 152/83 mm(hg) (HIGH) O2 Sat - 95 % (LOW) Pain - 0,1 - No physically strenuous activity, but ambulatory and able to carry out light or sedentary work (e.g. office work, light house work). (ECOG) Physical Examination: Constitutional Alert, oriented, no acute distress. Skin pink, warm and dry. Head Normocephalic; atraumatic. Eyes Conjunctivae and sclerae are clear and without icterus. Pupils are reactive and equal. Neck Supple without masses or thyromegaly. No jugular venous distension. Hematologic/Lymphatic No petechiae or purpura. No tender or palpable lymph nodes in the cervical or supraclavicular areas. Respiratory Lungs are clear to auscultation without rhonchi or wheezing. Cardiovascular Regular rate and rhythm of heart without murmurs,clicks, gallops or rubs. Breasts Bilateral mastectomy sites have healed well, no redness or exudate. Back/Spine Non-tender to palpation. Extremities No visible deformities, no cyanosis, clubbing or edema. Musculoskeletal No tenderness or swelling, normal range of motion without obvious weakness. Integumentary Mild, scattered light erythemic slightly raised rash on forearms, neck and chest. There are no vesicles or pustules noted. There are no scratch canas. Neurologic No sensory or motor deficits, normal cerebellar function, normal gait. Psychiatric Alert and oriented times three. Coherent speech. Verbalizes understanding of our discussions today. Laboratory:Test performed on Oct 21, 2020 12:40 Sodium 131 mmol/L Vitamin D (25-Hydroxy), Total 35 ng/mL Potassium 4.0 mmol/L Chloride 97 mmol/L CO2 25 mmol/L Anion Gap 13.0 BUN 17 mg/dL Creatinine 0.5 mg/dL Cr Clearance (Est) 163.99 mL/min eGFR 125.9 mL/min Glucose 97 mg/dL Osmolality - Calculated 273 mOsm/kg Calcium 9.7 mg/dL Protein, Total 6.4 g/dL Albumin 3.9 g/dL Globulin 2.5 g/dL Bilirubin, Total 0.3 mg/dL ALT (SGPT) 15 U/L AST (SGOT) 17 U/L Alkaline Phosphatase 85 IU/L WBC 8.5 10 3/uL RBC 4.32 10 6/uL HGB 13.8 g/dL HCT 40.4 % MCV 93.5 fL MCH 31.9 pg MCHC 34.2 g/dL RDW 12.7 % Platelet Count 307 10 3/cmm MPV 9.7 fL Neutrophils 5.34 10 3/uL Lymphocytes 2.2 10 3/uL Monocytes 0.6 10 3/uL Eosinophils 0.2 10 3/uL Basophils 0.1 10 3/uL Neutrophil % 63.1 % Lymphocyte % 26.2 % Monocyte % 7.1 % Eosinophil % 2.6 % Basophils % 0.6 % NRBC % 0 % Impression: 1. Grade 3 infiltrating ductal carcinoma of the right breast, ER/WI positive and HER-2/bogdan negative. She underwent right total mastectomy with axillary sentinel lymph node biopsy, prophylactic left simple mastectomy, and bilateral breast reconstruction on 09/22/2020. 2. Hypertension. 3. Obstructive sleep apnea. 4. Irritable bowel syndrome. 5. History of pancreatitis/duodenitis. 6. Degenerative arthritis/degenerative disease of the spine. 7. Osteopenia. 8. Chronic anxiety. Plan: 1. Grade 3 infiltrating ductal carcinoma of the right breast, ER/WI positive and HER-2/bogdan negative. Staging is incomplete. By imaging it appeared to be a T1b primary lesion. She underwent right total mastectomy with axillary sentinel lymph node biopsy, prophylactic left simple mastectomy, and bilateral breast reconstruction on 09/22/2020. Pathology from the mastectomy: The left simple mastectomy was benign breast tissue the breast right simple mastectomy reported grade 1 invasive ductal carcinoma the invasive carcinoma measured 0.8 cm in greatest dimension. The margins were free of tumor. Her Oncotype DX recurrence score was 23. The distant recurrence rate at 9 years with aromatase inhibitor or tamoxifen alone was 9% and the group average absolute chemotherapy benefit was less than 1%. Based on the current pathology and Oncotype DX score, the recommended therapy is aromatase inhibitor for 5 years. She began anastrazole on 10/07/2020. CHEK2 deleterious gene mutation A. She is having significant side effects with the Armidex. She has had significant headaches and joint pain. The symptoms resolved after holding it for approximately a week. She was able to resume at without significant headaches but has persistent joint pain and now presents with rash on her forearms, neck and chest. B. We will stop the anastrozole at this point and change her to Aromasin (Exemestane) 25 mg daily. We will start her out with a trial supply and give her a 90-day supply if she tolerates it well. C. After discussion with Dr Weinstein, she can try Tamoxifen if she has difficulty with the Armidex and exemustane. 2. She has osteopenia. A. In all likelihood she will require treatment for bone health along with the aromatase inhibitor if she can tolerate it. B. I did not pursue any formal treatment for the osteopenia as of yet given that she already has joint pain and the aromatase inhibitor was changed today. C. She is currently taking calcium and vitamin D. Her vitamin D level was 35 today. She is taking her calcium/vitamin D twice daily. D. We discussed weightbearing exercises such as walking and healthy for joint pain left side she can proceed with the walking program she had started prior to starting the aromatase inhibitor. 3. Follow-up plan A. Plan to see her back in 2 weeks to review how she is doing off of the aromatase inhibitor at that time. B. She is aware that she may stop the exemestane if she has significant bone pain, headaches or her rash worsens or any other symptoms arise. C. Mrs. Anthony was instructed to contact us in interim should questions or problems arise. Signed By: Cristóbal Santos-, [facility] Ryan Weinstein MD <<Signature on File>>
== END 2020-11-04 07:36 | disposition home or self-care (01) ==
PROVIDERS: PCP Internal Medicine; Visit Provider Nurse Practitioner
DX: C50.411 Malignant neoplasm of upper-outer quadrant of right female breast (principal); L27.0 Generalized skin eruption due to drugs and medicaments taken internally; T45.1X5A Adverse effect of antineoplastic and immunosuppressive drugs, initial encounter; M85.80 Other specified disorders of bone density and structure, unspecified site; Z17.0 Estrogen receptor positive status [ER+]; Z79.811 Long term (current) use of aromatase inhibitors; Z90.13 Acquired absence of bilateral breasts and nipples
CPT/HCPCS: 99214

== ENCOUNTER 2020-11-18 05:58 | Outpatient (CLI) | payer OTHER, SELFPAY ==
--- NOTE | 2020-11-30 22:48 | ONC FU_ITS ---
[facility] Patient Note Patient: Tristian Anthony Unit #: [id number]: 1960 Dictated By: Cristóbal SantosDate of Visit: Nov 18, 2020 Onc MED Follow-Up/Prog Note Chief Complaint: Breast cancer. History of Present Illness: Mrs Anthony is a 59-year-old woman with grade 3 infiltrating ductal carcinoma of the right breast, ER/CA positive and HER-2/bogdan negative. She had presented with an abnormal screening mammogram, BI-RADS 0, with evidence of a new irregular nodule near the 12 o'clock position of the right breast measuring 5 mm. Her additional mammographic views and right breast ultrasound on 08/12/2020 were BI-RADS 4, suspicious. Mammographic findings included a slightly lobulated asymmetry with spiculation and mild distortion near the 11 to 12 o'clock position of the right breast measuring 9 mm, new from her previous study in 2014. A well-circumscribed nodule at the 6 o'clock position appeared unchanged since 2011. By ultrasound the 6:00 lesion appears well-circumscribed and had benign appearance. The 11:00 lesion showed a 6 x 7 x 4 mm hypoechoic mass. Biopsy was recommended. Stereotactic biopsy of the 11 o'clock position right breast lesion on 08/21/2020 showed grade 3 invasive ductal carcinoma. The breast prognostic profile showed ER positive at 90% and CA positive at 80%. It was negative for overexpression of HER-2/bogdan, 1+ by IHC and amplification ratio by FISH of 1.0 with 2.4 HER-2 copies/cell. The Ki-67 was borderline at 10%. She initially had surgical consultation with Dr. Merchant, and she was recommended to undergo lumpectomy/axillary sentinel lymph node biopsy. However, after further consideration, she preferred to have bilateral mastectomy with reconstruction. She was then seen by Dr. Quang Winkler and by Dr. Josey Ball, and on 09/22/2020 she underwent right total mastectomy with axillary sentinel lymph node biopsy, prophylactic left simple mastectomy, and bilateral breast reconstruction. Pathology from the mastectomy: The left simple mastectomy was benign breast tissue the breast right simple mastectomy reported grade 1 invasive ductal carcinoma the invasive carcinoma measured 0.8 cm in greatest dimension. The margins were free of tumor. She has been feeling pretty good generally, though during the past year or so she has felt unusually tired in the afternoons. She has good appetite. She has been on a keto diet, though recently she has gained a little weight. She does have multiple food allergies. She has not had fever. She does have hot flashes/sweating. She underwent natural menopause at age 49. She has had no hormone replacement therapy. Her breathing has been okay, though she is on CPAP for obstructive sleep apnea. She does not complain of cough and she has not had chest pain. She had an episode of pancreatitis/duodenitis about a year ago. She did have an EGD and colonoscopy in July. She has chronic loose stools and gas. She has no complaints. She has joint pain, particularly in the ankles and hands, and she has chronic back pain. She reports having tendinitis in her right elbow and she also has TMJ problems. Her pain, though, has improved significantly with chondroitin sulfate/glucosamine. She used to have migraine headaches. She does not have any focal neurologic symptoms. She did see Dr. Weinstein for further follow-up. Her Oncotype DX recurrence score was 23. The distant recurrence rate at 9 years with aromatase inhibitor or tamoxifen alone was 9% and the group average absolute chemotherapy benefit was less than 1%. Mrs. Anthony is here today for 2-week follow-up. She has been stopped the anastrozole due to significant headaches and joint pain. She was rechallenged after being off of it for 1 to 2 weeks. She was able to tolerate the rechallenge of anastrozole but developed rash and had recurrent significant joint pain. At her visit on November 03, 2020 the anastrozole was once again stopped and she was changed to exemestane. She presents today with horrible depression . She states there is no joint pain and she has had no recurrent headaches but the depression has just been debilitating . She states she just feels really sad all the time and just wants to cry and sit around . She has no intentions of harming herself or others. She states she is not suicidal. She states she is just sad. She is also having some significant hot flashes intermittently. She states they come about 3 or 4 times a day and sometimes bother her so much that she just sits and waits for them to pass. She states her appetite is fair. Energy is fair. She has no other concerns. She denies shortness of breath orthopnea. She denies diarrhea or constipation. She states she has had no neuropathy. Her ECOG is 1. Past Medical History: Anxiety Degenerative arthritis Degenerative disease of the spine History of pancreatitis/duodenitis Hypertension Irritable bowel syndrome Obstructive sleep apnea Osteopenia CHEK2 deleterious gene mutation in 2020 Past Surgical History: Bilateral mastectomy, axillary sentinel lymph node biopsy, and breast reconstruction in 2020 Stereotactic right breast biopsy in 2020 EGD and colonoscopy in 2019 section and tubal ligation in 1991 Allergies: [place], Banana, Barley, [place], Beef, Black Pepper, Bran, Cantaloupe, Cashew, Coconut, Codfish, Green Pea, Arnol, Lobster, Meperidine HCl, Mushrooms, Mustard, NSAIDs, Oats, Pineapple, Scallop, Sesame, and Shrimp. Medications: Atenolol 1 (50 mg) Tablet Oral at bedtime Calcium & Vit D3 Bone Health 1 Liquid Oral b.i.d. diphenhydrAMINE HCl 1 (50 mg) Tablet Oral at bedtime FLUoxetine HCl 1 (60 mg) Tablet Oral every am Glucosamine Chondroitin Joint 1 Tablet Oral daily Loratadine 1 (10 mg) Tablet Oral daily Ondansetron HCl 1 (4 mg) Tablet Oral q 4 hours oxyCODONE-Acetaminophen 1 (5-325 mg/5mL) Solution Oral q 4 hours PRN Pantoprazole Sodium 1 (40 mg) Tablet, enteric coated Oral daily Simethicone 1 (80 mg) Tablet Oral daily PRN Family History: Ms. Anthony's mother at age 75: polymyalgia rheumatica. Ms. Anthony's father at age 80: abdominal aortic aneurysm, and Fibrocystic Lung Disease. Ms. Anthony has 2 brothers: 2 . Ms. Anthony's first brother's embryonal. Another brother's metastatic cancer(unknown primary). She has 4 sisters: 3 alive, 1 . Ms. Anthony's first sister's house fire. Father at age 80 with fibrocystic lung disease. Mother had kidney cancer, but she with heart disease at age 75. A brother with embryonal cell carcinoma at age 27. Another at age 62 with metastatic cancer of undetermined primary. A sister in a house fire at age 42. Social History: Ms. 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 Ms. Anthony has never smoked. She drinks occasionally. Ms. Anthony reports the following support systems: lives with spouse, significant other, family, or friends. Review Of Symptoms: see above Vital Signs: Performed on Nov 18, 2020 13:47 Height - 67.00 in Weight - 196 lbs (HIGH) BSA - 2.00 sq.m BMI - 30.70 (HIGH) Temperature - 97.4 F (LOW) Pulse - 74 /min Respiration - 18 /min BP - 163/97 mm(hg) (HIGH) O2 Sat - 95 % (LOW) Pain - 0 Fatigue - 7,1 - No physically strenuous activity, but ambulatory and able to carry out light or sedentary work (e.g. office work, light house work). (ECOG) Physical Examination: Constitutional Alert, oriented, no acute distress. Skin pink, warm and dry. Head Normocephalic; atraumatic. Eyes Conjunctivae and sclerae are clear and without icterus. Pupils are reactive and equal. Neck Supple without masses or thyromegaly. No jugular venous distension. Hematologic/Lymphatic No petechiae or purpura. No tender or palpable lymph nodes in the cervical or supraclavicular areas. Respiratory Lungs are clear to auscultation without rhonchi or wheezing. Cardiovascular Regular rate and rhythm of heart without murmurs,clicks, gallops or rubs. Breasts Bilateral mastectomy sites have healed well, no redness or exudate. Abdomen Non-tender, non-distended, no masses or ascites. Good bowel sounds noted in all quads. No guarding or rebound tenderness. No pulsatile masses. Back/Spine Non-tender to palpation. Extremities No visible deformities, no cyanosis, clubbing or edema. Musculoskeletal No tenderness or swelling, normal range of motion without obvious weakness. Neurologic No sensory or motor deficits, normal cerebellar function, normal gait. Psychiatric Alert and oriented times three. Coherent speech. Verbalizes understanding of our discussions today. Laboratory:Test performed on Oct 21, 2020 12:40 Sodium 131 mmol/L Vitamin D (25-Hydroxy), Total 35 ng/mL Potassium 4.0 mmol/L Chloride 97 mmol/L CO2 25 mmol/L Anion Gap 13.0 BUN 17 mg/dL Creatinine 0.5 mg/dL Cr Clearance (Est) 163.99 mL/min eGFR 125.9 mL/min Glucose 97 mg/dL Osmolality - Calculated 273 mOsm/kg Calcium 9.7 mg/dL Protein, Total 6.4 g/dL Albumin 3.9 g/dL Globulin 2.5 g/dL Bilirubin, Total 0.3 mg/dL ALT (SGPT) 15 U/L AST (SGOT) 17 U/L Alkaline Phosphatase 85 IU/L WBC 8.5 10 3/uL RBC 4.32 10 6/uL HGB 13.8 g/dL HCT 40.4 % MCV 93.5 fL MCH 31.9 pg MCHC 34.2 g/dL RDW 12.7 % Platelet Count 307 10 3/cmm MPV 9.7 fL Neutrophils 5.34 10 3/uL Lymphocytes 2.2 10 3/uL Monocytes 0.6 10 3/uL Eosinophils 0.2 10 3/uL Basophils 0.1 10 3/uL Neutrophil % 63.1 % Lymphocyte % 26.2 % Monocyte % 7.1 % Eosinophil % 2.6 % Basophils % 0.6 % NRBC % 0 % Impression: 1. Grade 3 infiltrating ductal carcinoma of the right breast, ER/CA positive and HER-2/bogdan negative. She underwent right total mastectomy with axillary sentinel lymph node biopsy, prophylactic left simple mastectomy, and bilateral breast reconstruction on 09/22/2020. 2. Hypertension. 3. Obstructive sleep apnea. 4. Irritable bowel syndrome. 5. History of pancreatitis/duodenitis. 6. Degenerative arthritis/degenerative disease of the spine. 7. Osteopenia. 8. Chronic anxiety. Plan: 1. Grade 3 infiltrating ductal carcinoma of the right breast, ER/CA positive and HER-2/bogdan negative. Staging is incomplete. By imaging it appeared to be a T1b primary lesion. She underwent right total mastectomy with axillary sentinel lymph node biopsy, prophylactic left simple mastectomy, and bilateral breast reconstruction on 09/22/2020. Pathology from the mastectomy: The left simple mastectomy was benign breast tissue the breast right simple mastectomy reported grade 1 invasive ductal carcinoma the invasive carcinoma measured 0.8 cm in greatest dimension. The margins were free of tumor. Her Oncotype DX recurrence score was 23. The distant recurrence rate at 9 years with aromatase inhibitor or tamoxifen alone was 9% and the group average absolute chemotherapy benefit was less than 1%. Based on the current pathology and Oncotype DX score, the recommended therapy is aromatase inhibitor for 5 years. She began anastrazole on 10/07/2020. A. She had significant side effects with the Armidex. She had significant headaches and joint pain. The symptoms resolved after holding it for approximately a week. She was able to resume/rechallenge with the anastrozole at without significant headaches but has persistent joint pain and presented with rash on her forearms, neck and chest. B. The anastrozole was stopped on 11/03/2020 and her treatment was changed to Aromasin (exemestane) 25 mg daily. C. She will now HOLD THE EXEMESTANE. She now presents with intolerance of the exemestane and that she is having worsening depression. She is having no joint pain but states the depression is horrible . She has no thoughts of harm herself or others. She states she is wants to cry all the time and feels sad all the time . C. After discussion with Dr Weinstein, she can try Tamoxifen if she has difficulty with the Armidex and exemustane. 2. Situational depression/aromatase inhibitor induced A. She is requesting to change from her Prozac to another agent. She states she does not feel the Prozac is working as good as it has in the past. B. We will have her wean her Prozac and then start Effexor 37.5 mg daily and may titrate up to 75 mg daily over the next 1 to 2 weeks. C. Mrs. Anthony has been instructed to contact us immediately if she feels her depression is worse or she has any ideations of harming herself or others. She again reassures me that she is not suicidal or tends to harm anyone else she is just sad and everything makes me cry. She also states she is having some tremendous hot flashes. 3. She has osteopenia. A. In all likelihood she will require treatment for bone health along with the aromatase inhibitor if she can tolerate it. B. I did not pursue any formal treatment for the osteopenia as of yet given that she already has joint pain and the aromatase inhibitor was changed today. C. She is currently taking calcium and vitamin D. Her vitamin D level was 35 on 10/21/2020. She is taking her calcium/vitamin D twice daily. D. We discussed weightbearing exercises such as walking and healthy for joint pain left side she can proceed with the walking program she had started prior to starting the aromatase inhibitor. 4. Follow-up plan A. Plan to see her back in 2 weeks to review how she is doing off the exemustane at that She reports that just number 15 tablets of the exemestane was $55. B. She is aware that she is to call is she has any worsening of her depression symptoms after holding the exemustane and changinf to C. Mrs. Anthony was instructed to contact us in interim should questions or problems arise. Signed By: Cristóbal Santos-, CNP Ryan Weinstein MD <<Signature on File>>
== END 2020-11-18 05:59 | disposition home or self-care (01) ==
LOC: ONCMED 05:59
PROVIDERS: PCP Internal Medicine; Visit Provider Nurse Practitioner
DX: C50.811 Malignant neoplasm of overlapping sites of right female breast (principal); Z17.0 Estrogen receptor positive status [ER+]; Z90.11 Acquired absence of right breast and nipple; Z90.12 Acquired absence of left breast and nipple; I10 Essential (primary) hypertension; G47.33 Obstructive sleep apnea (adult) (pediatric); K58.9 Irritable bowel syndrome, unspecified; M47.9 Spondylosis, unspecified; M85.80 Other specified disorders of bone density and structure, unspecified site; F41.9 Anxiety disorder, unspecified; Z79.811 Long term (current) use of aromatase inhibitors
CPT/HCPCS: 99214

== ENCOUNTER 2020-12-03 06:23 | Outpatient (CLI) | payer OTHER, SELFPAY ==
[2020-12-03 12:59] LABS: Basophils # 0.1 10^3/uL (0.0-0.1); Basophils % 0.9 %; Eosinophils # 0.1 10^3/uL (0.0-0.8); Eosinophils % 1.5 %; Hematocrit 42.6 % (37.0-47.0); Hemoglobin 14.4 g/dL (11.5-15.3); Lymphocytes # 2.4 10^3/uL (0.8-4.8); Lymphocytes % 29.4 %; Mean Corpuscular HGB Conc 33.8 g/dL (30.0-36.0); Mean Corpuscular Hemoglobin 31.6 pg (28.0-34.0); Mean Corpuscular Volume 93.4 fL (81-99); Monocytes # 0.6 10^3/uL (0.2-0.9); Monocytes % 7.1 %; Neutrophils # 4.87 10^3/uL (1.8-7.7); Nucleated Red Blood Cells % 0 %; Platelet Count 253 10^3/cmm (130-400); Red Blood Count 4.56 10^6/uL (4.1-5.3); Red Cell Distribution Width 12.1 % (12.1-15.1)
[2020-12-03 13:27] LABS: Alanine Aminotransferase 25 U/L (0-33); Albumin Level 4.1 g/dL (3.5-5.2); Alkaline Phosphatase 85 IU/L (35-105); Anion Gap 10.9 (5-19); Aspartate Amino Transferase 17 U/L (0-32); Blood Urea Nitrogen 18 mg/dL (8-23); Calcium 9.6 mg/dL (8.5-10.5); Carbon Dioxide 28 mmol/L (22-29); Chloride 104 mmol/L (98-107); Globulin 2.4 g/dL (1.3-4.6); Glomerular Filtration Rate 125.9 mL/min (90-130); Glucose 94 mg/dL (65-115); Osmolality Calculated 290 mOsm/kg (285-295); Potassium 3.9 mmol/L (3.5-5.1); Sodium 139 mmol/L (136-145); Total Bilirubin 0.3 mg/dL (0.15-1.2); Total Protein 6.5 g/dL (6.6-8.7)
--- NOTE | 2020-12-03 19:40 | ONC FU_ITS ---
Dr. Weinstein Patient Follow-Up Note Patient: Tristian Anthony Unit #: [id number]: 1960 Dicatated By: Ryan Weinstein M.D.Date of Visit:December 03, 2020 Onc Med Follow-up/Prog Note Chief Complaint: Breast cancer. History of Present Illness: This is a 59 year-old woman with grade 1 infiltrating ductal carcinoma of the right breast, stage IA (T1b, N0, M0), ER/OK positive and HER-2/bogdan negative. She had presented with an abnormal screening mammogram, BI-RADS 0, with evidence of a new irregular nodule near the 12 o'clock position of the right breast measuring 5 mm. Her additional mammographic views and right breast ultrasound on 08/12/2020 were BI-RADS 4, suspicious. Mammographic findings included a slightly lobulated asymmetry with spiculation and mild distortion near the 11 to 12 o'clock position of the right breast measuring 9 mm, new from her previous study in 2014. A well-circumscribed nodule at the 6 o'clock position appeared unchanged since 2011. By ultrasound the 6:00 lesion appears well-circumscribed and had benign appearance. The 11:00 lesion showed a 6 x 7 x 4 mm hypoechoic mass. Biopsy was recommended. Stereotactic biopsy of the 11 o'clock position right breast lesion on 08/21/2020 showed grade 3 invasive ductal carcinoma. The breast prognostic profile showed ER positive at 90% and OK positive at 80%. It was negative for overexpression of HER-2/bogdan, 1+ by IHC and amplification ratio by FISH of 1.0 with 2.4 HER-2 copies/cell. The Ki-67 was borderline at 10%. She initially had surgical consultation with Dr. Merchant, and she was recommended to undergo lumpectomy/axillary sentinel lymph node biopsy. However, after further consideration, she preferred to have bilateral mastectomy with reconstruction. She was then seen by Dr. Quang Winkler and by Dr. Josey Ball, and on 09/22/2020 she underwent right total mastectomy with sentinel axillary lymph node biopsy, prophylactic left simple mastectomy, and bilateral breast reconstruction. Pathology from the mastectomy showed grade 1 invasive ductal carcinoma measuring 0.8 cm in greatest dimension. The margins were free of tumor. There was no tumor identified in 3 sentinel axillary lymph nodes. She then had further evaluation with Oncotype DX. It showed a recurrence score of 23, corresponding to a 9% risk of distant recurrence at 9 years with adjuvant endocrine therapy. The predicted benefit with chemotherapy was <1%. 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 Given the Oncotype DX results, adjuvant chemotherapy was not recommended. She began adjuvant hormonal therapy with anastrozole 1 mg daily on 10/07/2020. She had to stop taking it within 2 weeks due to severe joint pain and headaches. The symptoms improved after stopping the medication, and on 11/04/2020 she began further adjuvant hormonal therapy with exemestane 25 mg daily. It also caused multiple side effects including fatigue, depression, and elevated blood pressure, and she did have to stop taking it. She is seen for a follow-up visit. She still complains that she feels tired, but she is able to work. ECOG score is 1. She has good appetite. She is on a low-carb diet, which keeps her weight stable. She has not had fever or night sweats. She does have some hot flashes, but not bad. She has no shortness of breath, cough, or chest pain. She currently has no GI or complaints. She does have some joint pain, mainly in the hips and knees. It is back to baseline. She has some headaches, but not too bad. She has no focal neurologic symptoms. Her depression is much better with stopping the exemestane and with changing her antidepressant medication from fluoxetine to venlafaxine. She continues to complain that she has difficulty sleeping at night. She also has been having a lot of muscle cramps in her legs, mainly during the night and when she first gets up in the morning. Medications: Atenolol 1 (50 mg) Tablet Oral at bedtime, Calcium & Vit D3 Bone Health 1 Liquid Oral b.i.d., diphenhydrAMINE HCl 1 (50 mg) Tablet Oral at bedtime, FLUoxetine HCl 1 (60 mg) Tablet Oral every am, Glucosamine Chondroitin Joint 1 Tablet Oral daily, Loratadine 1 (10 mg) Tablet Oral daily, Ondansetron HCl 1 (4 mg) Tablet Oral q 4 hours, oxyCODONE-Acetaminophen 1 (5-325 mg/5mL) Solution Oral q 4 hours PRN, Pantoprazole Sodium 1 (40 mg) Tablet, enteric coated Oral daily, Simethicone 1 (80 mg) Tablet Oral daily PRN Allergies: [place], Banana, Barley, [place], Beef, Black Pepper, Bran, Cantaloupe, Cashew, Coconut, Codfish, Green Pea, Arnol, Lobster, Meperidine HCl, Mushrooms, Mustard, NSAIDs, Oats, Pineapple, Scallop, Sesame, and Shrimp. Vital Signs: Performed on December 03, 2020 14:38 Height - 67.00 in Weight - 194.8 lbs (LOW) BSA - 2.00 sq.m BMI - 30.51 (HIGH) Temperature - 98.1 F (LOW) Pulse - 77 /min Respiration - 18 /min BP - 145/87 mm(hg) (HIGH) O2 Sat - 99 % Pain - 0 Fatigue - 0 Physical Examination: Constitutional - She looks good generally, Eyes - Sclerae nonicteric. Conjunctivae clear, ENMT - No lesions noted in the oral cavity, Hematologic/Lymphatic - No cervical, clavicular, or axillary adenopathy, Respiratory - Lungs are clear with good air movement bilaterally, Cardiovascular - Heart rhythm is regular. There is no murmur, gallop, or rub noted, Abdomen - Soft . Liver and spleen are not enlarged. There is no abdominal mass or ascites noted and there is no inguinal adenopathy, Extremities - No edema, Neurologic - No focal neurologic deficits noted. Lab/Imaging: Test performed on December 03, 2020 12:22 Sodium 139 mmol/L Potassium 3.9 mmol/L Chloride 104 mmol/L CO2 28 mmol/L Anion Gap 10.9 BUN 18 mg/dL Creatinine 0.5 mg/dL Cr Clearance (Est) 166.90 mL/min eGFR 125.9 mL/min Glucose 94 mg/dL Osmolality - Calculated 290 mOsm/kg Calcium 9.6 mg/dL Protein, Total 6.5 g/dL Albumin 4.1 g/dL Globulin 2.4 g/dL Bilirubin, Total 0.3 mg/dL ALT (SGPT) 25 U/L AST (SGOT) 17 U/L Alkaline Phosphatase 85 IU/L WBC 8.0 10 3/uL RBC 4.56 10 6/uL HGB 14.4 g/dL HCT 42.6 % MCV 93.4 fL MCH 31.6 pg MCHC 33.8 g/dL RDW 12.1 % Platelet Count 253 10 3/cmm MPV 10.0 fL Neutrophils 4.87 10 3/uL Lymphocytes 2.4 10 3/uL Monocytes 0.6 10 3/uL Eosinophils 0.1 10 3/uL Basophils 0.1 10 3/uL Neutrophil % 61.0 % Lymphocyte % 29.4 % Monocyte % 7.1 % Eosinophil % 1.5 % Basophils % 0.9 % NRBC % 0 % Problem List: 1. Grade 1 infiltrating ductal carcinoma of the right breast, stage IA (T1b, N0, M0), ER/OK positive and HER-2/bogdan negative. She underwent right total mastectomy with axillary sentinel lymph node biopsy, prophylactic left simple mastectomy, and bilateral breast reconstruction on 09/22/2020. Oncotype DX was low risk, recurrence score 23, corresponding to a 9% risk of distant recurrence at 9 years with adjuvant hormonal therapy. The predicted benefit with adjuvant chemotherapy was < 1%. 2. 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 3. Hypertension. 4. Obstructive sleep apnea. 5. Irritable bowel syndrome. 6. History of pancreatitis/duodenitis. 7. Degenerative arthritis/degenerative disease of the spine. 8. Osteopenia. 9. Chronic anxiety. Problems Addressed with this Encounter and Plan: Patient with grade 1 infiltrating ductal carcinoma of the right breast, stage IA (T1b, N0, M0), ER/OK positive and HER-2/bogdan negative. She underwent right total mastectomy with axillary sentinel lymph node biopsy, prophylactic left simple mastectomy, and bilateral breast reconstruction on 09/22/2020. Oncotype DX was low risk, recurrence score 23, corresponding to a 9% risk of distant recurrence at 9 years with adjuvant hormonal therapy. The predicted benefit with adjuvant chemotherapy was < 1%. Given the Oncotype DX results, adjuvant chemotherapy was not recommended. She began adjuvant hormonal therapy with anastrozole 1 mg daily on 10/07/2020. Unfortunately she had very poor tolerance for the anastrozole and subsequently with exemestane, both of which she had to stop within 2 weeks of starting treatment because of side effects. I discussed the possibility of continuing her adjuvant endocrine therapy with tamoxifen. This would be more likely to cause hot flashes and vaginal dryness compared to the aromatase inhibitors, but it would be less likely to cause musculoskeletal pain and/or [employer] symptoms. We discussed the fact that it would have additional risk of thromboembolism and that it would have a small risk of endometrial cancer, in the range of 4-5 cases per 1000. She is wondering if she should just go ahead and have prophylactic hysterectomy/bilateral salpingo-oophorectomy, which ordinarily is not recommended, but I do want to verify whether there may be additional risks associated with the CHEK2 mutation. In the meantime, she is going to continue the venlafaxine for the depression, but I will have her change from 37.5 mg twice daily to 75 mg daily and I will have her try taking trazodone at bedtime for the insomnia. Signed By: Ryan Weinstein M.D. <<Signature on File>>
== END 2020-12-03 06:24 | disposition home or self-care (01) ==
LOC: ONCMED 06:24
PROVIDERS: PCP Internal Medicine; Visit Provider Internal Medicine Medical Oncology
DX: C50.811 Malignant neoplasm of overlapping sites of right female breast (principal); Z17.0 Estrogen receptor positive status [ER+]; I10 Essential (primary) hypertension; G47.33 Obstructive sleep apnea (adult) (pediatric); K58.9 Irritable bowel syndrome, unspecified; K85.90 Acute pancreatitis without necrosis or infection, unspecified; K29.80 Duodenitis without bleeding; M47.9 Spondylosis, unspecified; M85.80 Other specified disorders of bone density and structure, unspecified site; F41.9 Anxiety disorder, unspecified; Z79.811 Long term (current) use of aromatase inhibitors; Z79.899 Other long term (current) drug therapy
CPT/HCPCS: 36415; 80053; 85025; 99214

== ENCOUNTER 2021-01-29 15:05 | Outpatient (CLI) | payer OTHER, SELFPAY ==
[2021-01-29 15:30] LABS: Add Urine Microscopic? NO; Charge for UA Resulting for Rev
[2021-01-29 16:02] LABS: Bilirubin Urine Neg (Negative); Blood Urine Neg (Negative); Glucose Urine UA Norm (Normal); Ketones Urine Negative (Negative); Leukocyte Esterase Urine Negative (Negative); Nitrate Urine Negative (Negative); Protein Urine Neg (Negative); Specific Gravity, Urine 1.015 (1.005-1.030); Urine Appearance Clear (CLEAR); Urine Color Yellow (Yellow); Urobilinogen Urine Norm (Negative); pH Urine 5 (5-7)
== END 2021-01-29 15:06 | disposition home or self-care (01) ==
LOC: ONCMED 15:09
PROVIDERS: PCP Internal Medicine; Visit Provider Nurse Practitioner
DX: C50.411 Malignant neoplasm of upper-outer quadrant of right female breast (principal); Z17.0 Estrogen receptor positive status [ER+]; Z79.811 Long term (current) use of aromatase inhibitors; Z79.899 Other long term (current) drug therapy
CPT/HCPCS: 81003; 87086

== ENCOUNTER 2021-06-15 13:28 | Outpatient (CLI) | payer OTHER, SELFPAY ==
[2021-06-15 14:17] LABS: Basophils # 0.1 10^3/uL (0.0-0.1); Basophils % 0.9 %; Eosinophils # 0.1 10^3/uL (0.0-0.8); Hematocrit 43.7 % (37.0-47.0); Hemoglobin 15.2 g/dL (11.5-15.3); Lymphocytes % 29.1 %; Mean Corpuscular HGB Conc 34.8 g/dL (30.0-36.0); Mean Corpuscular Hemoglobin 31.7 pg (28.0-34.0); Mean Platelet Volume 10.1 fL (7.4-10.4); Monocytes # 0.6 10^3/uL (0.2-0.9); Monocytes % 8.6 %; Neutrophils # 4.02 10^3/uL (1.8-7.7); Nucleated Red Blood Cells % 0 %; Platelet Count 216 10^3/cmm (130-400); Red Cell Distribution Width 12.2 % (12.1-15.1); White Blood Count 6.8 10^3/uL (4.0-10.0)
[2021-06-15 14:32] LABS: Alanine Aminotransferase 15 U/L (0-33); Albumin Level 3.9 g/dL (3.5-5.2); Alkaline Phosphatase 86 IU/L (35-105); Anion Gap 15.6 (5-19); Aspartate Amino Transferase 15 U/L (0-32); Blood Urea Nitrogen 11 mg/dL (8-23); Calcium 9.9 mg/dL (8.5-10.5); Carbon Dioxide 24 mmol/L (22-29); Chloride 102 mmol/L (98-107); Globulin 2.7 g/dL (1.3-4.6); Glomerular Filtration Rate 101.6 mL/min (90-130); Glucose 85 mg/dL (65-115); Osmolality Calculated 283 mOsm/kg (285-295); Potassium 4.6 mmol/L (3.5-5.1); Sodium 137 mmol/L (136-145); Total Bilirubin 0.3 mg/dL (0.15-1.2); Total Protein 6.6 g/dL (6.6-8.7)
== END 2021-06-15 13:29 | disposition home or self-care (01) ==
LOC: ONCMED 13:34
PROVIDERS: PCP Internal Medicine; Visit Provider Internal Medicine Medical Oncology
DX: C50.411 Malignant neoplasm of upper-outer quadrant of right female breast (principal); Z17.0 Estrogen receptor positive status [ER+]
CPT/HCPCS: 36415; 80053; 85025

== ENCOUNTER 2021-06-18 06:34 | Outpatient (CLI) | payer OTHER, SELFPAY ==
--- NOTE | 2021-06-21 13:17 | ONC FU_ITS ---
Dr. Weinstein Patient Follow-Up Note Patient: Tristian Anthony Unit #: [id number]: 1960 Dicatated By: Ryan Weinstein M.D.Date of Visit:Jun 18, 2021 Onc Med Follow-up/Prog Note Chief Complaint: Breast cancer. History of Present Illness: This is a 60 year-old woman with grade 1 infiltrating ductal carcinoma of the right breast, stage IA (T1b, N0, M0), ER/RI positive and HER-2/bogdan negative. She had presented with an abnormal screening mammogram, BI-RADS 0, with evidence of a new irregular nodule near the 12 o'clock position of the right breast measuring 5 mm. Her additional mammographic views and right breast ultrasound on 08/12/2020 were BI-RADS 4, suspicious. Mammographic findings included a slightly lobulated asymmetry with spiculation and mild distortion near the 11 to 12 o'clock position of the right breast measuring 9 mm, new from her previous study in 2014. A well-circumscribed nodule at the 6 o'clock position appeared unchanged since 2011. By ultrasound the 6:00 lesion appears well-circumscribed and had benign appearance. The 11:00 lesion showed a 6 x 7 x 4 mm hypoechoic mass. Biopsy was recommended. Stereotactic biopsy of the 11 o'clock position right breast lesion on 08/21/2020 showed grade 3 invasive ductal carcinoma. The breast prognostic profile showed ER positive at 90% and RI positive at 80%. It was negative for overexpression of HER-2/bogdan, 1+ by IHC and amplification ratio by FISH of 1.0 with 2.4 HER-2 copies/cell. The Ki-67 was borderline at 10%. She initially had surgical consultation with Dr. Merchant, and she was recommended to undergo lumpectomy/axillary sentinel lymph node biopsy. However, after further consideration, she preferred to have bilateral mastectomy with reconstruction. She was then seen by Dr. Quang Winkler and by Dr. Josey Ball, and on 09/22/2020 she underwent right total mastectomy with sentinel axillary lymph node biopsy, prophylactic left simple mastectomy, and bilateral breast reconstruction. Pathology from the mastectomy showed grade 1 invasive ductal carcinoma measuring 0.8 cm in greatest dimension. The margins were free of tumor. There was no tumor identified in 3 sentinel axillary lymph nodes. She then had further evaluation with Oncotype DX. It showed a recurrence score of 23, corresponding to a 9% risk of distant recurrence at 9 years with adjuvant endocrine therapy. The predicted benefit with chemotherapy was <1%. 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 Given the Oncotype DX results, adjuvant chemotherapy was not recommended. She began adjuvant hormonal therapy with anastrozole 1 mg daily on 10/07/2020. She had to stop taking it within 2 weeks due to severe joint pain and headaches. The symptoms improved after stopping the medication, and on 11/04/2020 she began further adjuvant hormonal therapy with exemestane 25 mg daily. It also caused multiple side effects including fatigue, depression, and elevated blood pressure, and she did have to stop taking it. As yet she has not attempted any further treatment. She is seen for a follow-up visit. She complains that she feels tired and worn out, but some of that may still be attributable to having had COVID-19 virus infection in January. She also got very sick after her second COVID-19 vaccination last week. 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 Her ECOG score is 1. Her appetite has been okay. She has been trying to adhere to a low keto diet. She has not had fever. She is still having hot flashes and sweating. She has some sinus/nasal congestion, attributable to allergies. She has not had sore mouth or throat. She does not complain of cough, and she has not been having shortness of breath or chest pain. Her nausea has improved with an alkaline water supplement. Her bowel function also is better. She does complain of having urinary frequency/urgency and some bladder leakage. She complains that by afternoon her joint pain gets a lot worse, particularly in her knees. She has headache on a daily basis. She thinks it may be a TMJ issue. She sometimes has dizziness. She does not have numbness or paresthesia, but she does have symptoms of restless leg syndrome. Her depression has improved somewhat with venlafaxine. She also has been sleeping a little better. Medications: Atenolol 1 (50 mg) Tablet Oral at bedtime, Calcium & Vit D3 Bone Health 1 Liquid Oral b.i.d., Daily Vitamins 1 Tablet Oral daily, Glucosamine Chondroitin Joint 1 Tablet Oral daily, Pantoprazole Sodium 1 (40 mg) Tablet, enteric coated Oral daily, Venlafaxine HCl 1 (75 mg) Tablet Oral daily Allergies: [place], Banana, Barley, [place], Beef, Black Pepper, Bran, Cantaloupe, Cashew, Coconut, Codfish, Green Pea, Arnol, Lobster, Meperidine HCl, Mushrooms, Mustard, NSAIDs, Oats, Pineapple, Scallop, Sesame, and Shrimp. Vital Signs: Performed on Jun 18, 2021 08:37 Height - 67.00 in Weight - 196.4 lbs (HIGH) BSA - 2.01 sq.m BMI - 30.76 (HIGH) Temperature - 97.4 F (LOW) Pulse - 68 /min Respiration - 18 /min BP - 146/92 mm(hg) (HIGH) O2 Sat - 97 % Pain - 0 Fatigue - 7 Physical Examination: Constitutional - She looks pretty good generally, Eyes - Sclerae nonicteric. Conjunctivae clear, ENMT - No lesions noted in the oral cavity, Hematologic/Lymphatic - No cervical, clavicular, or axillary adenopathy, Respiratory - Lungs are clear with good air movement bilaterally, Cardiovascular - Heart rhythm is regular. There is no murmur, gallop, or rub noted, Abdomen - Soft . Liver and spleen are not enlarged. There is no abdominal mass or ascites noted and there is no inguinal adenopathy, Extremities - No edema, Neurologic - No focal neurologic deficits noted. Lab/Imaging: Test performed on Jun 15, 2021 13:50 Sodium 137 mmol/L Potassium 4.6 mmol/L Chloride 102 mmol/L CO2 24 mmol/L Anion Gap 15.6 BUN 11 mg/dL Creatinine 0.6 mg/dL Cr Clearance (Est) 138.48 mL/min eGFR 101.6 mL/min Glucose 85 mg/dL Osmolality - Calculated 283 mOsm/kg Calcium 9.9 mg/dL Protein, Total 6.6 g/dL Albumin 3.9 g/dL Globulin 2.7 g/dL Bilirubin, Total 0.3 mg/dL ALT (SGPT) 15 U/L AST (SGOT) 15 U/L Alkaline Phosphatase 86 IU/L WBC 6.8 10 3/uL RBC 4.80 10 6/uL HGB 15.2 g/dL HCT 43.7 % MCV 91.0 fl MCH 31.7 pg MCHC 34.8 g/dL RDW 12.2 % Platelet Count 216 10 3/cmm MPV 10.1 fL Neutrophils 4.02 10 3/uL Lymphocytes 2.0 10 3/uL Monocytes 0.6 10 3/uL Eosinophils 0.1 10 3/uL Basophils 0.1 10 3/uL Neutrophil % 59.0 % Lymphocyte % 29.1 % Monocyte % 8.6 % Eosinophil % 2.0 % Basophils % 0.9 % NRBC % 0 % Problem List: 1. Grade 1 infiltrating ductal carcinoma of the right breast, stage IA (T1b, N0, M0), ER/RI positive and HER-2/bogdan negative. She underwent right total mastectomy with axillary sentinel lymph node biopsy, prophylactic left simple mastectomy, and bilateral breast reconstruction on 09/22/2020. Oncotype DX was low risk, recurrence score 23, corresponding to a 9% risk of distant recurrence at 9 years with adjuvant hormonal therapy. The predicted benefit with adjuvant chemotherapy was < 1%. 2. 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 3. Hypertension. 4. Obstructive sleep apnea. 5. Irritable bowel syndrome. 6. History of pancreatitis/duodenitis. 7. Degenerative arthritis/degenerative disease of the spine. 8. Osteopenia. 9. Chronic anxiety. Problems Addressed with this Encounter and Plan: Patient with grade 1 infiltrating ductal carcinoma of the right breast, stage IA (T1b, N0, M0), ER/RI positive and HER-2/bogdan negative. She underwent right total mastectomy with axillary sentinel lymph node biopsy, prophylactic left simple mastectomy, and bilateral breast reconstruction on 09/22/2020. Oncotype DX was low risk, recurrence score 23, corresponding to a 9% risk of distant recurrence at 9 years with adjuvant hormonal therapy. The predicted benefit with adjuvant chemotherapy was < 1%. Given the Oncotype DX results, adjuvant chemotherapy was not recommended. She began adjuvant hormonal therapy with anastrozole 1 mg daily on 10/07/2020. Unfortunately she had very poor tolerance for the anastrozole and subsequently with exemestane, both of which she had to stop within 2 weeks of starting treatment because of side effects. At her follow-up visit in November 2019 when I discussed the possibility of trying tamoxifen, but at that point she was still having multiple complaints, most of which have persisted, including fatigue, hot flashes, and joint pain, among others. As such, for now she will continue with observation/symptomatic management. She will continue her venlafaxine at the same dosage. I am going to have her try Ditropan for her bladder symptoms, as it also potentially could help with the hot flashes. She will be given a prescription for hydrocodone 5/APAP 325 to take as needed for severe pain, but that will not be more than once or twice a day, at most. I will tentatively plan a follow-up visit in 6 months. Signed By: Ryan Weinstein M.D. <<Signature on File>>
== END 2021-06-18 06:35 | disposition home or self-care (01) ==
LOC: ONCMED 06:35
PROVIDERS: PCP Internal Medicine; Visit Provider Internal Medicine Medical Oncology
DX: C50.811 Malignant neoplasm of overlapping sites of right female breast (principal); Z17.0 Estrogen receptor positive status [ER+]; Z90.11 Acquired absence of right breast and nipple; Z79.818 Long term (current) use of other agents affecting estrogen receptors and estrogen levels; I10 Essential (primary) hypertension; G47.33 Obstructive sleep apnea (adult) (pediatric); K58.9 Irritable bowel syndrome, unspecified; M47.9 Spondylosis, unspecified; M85.80 Other specified disorders of bone density and structure, unspecified site; F41.9 Anxiety disorder, unspecified; Z86.39 Personal history of other endocrine, nutritional and metabolic disease; Z79.899 Other long term (current) drug therapy
CPT/HCPCS: 99214

== ENCOUNTER 2021-07-21 06:00 | Outpatient (RCR) | payer OTHER, SELFPAY | END 2021-07-31 23:59 | disposition home or self-care (01) | LOC: SPT 06:00 | PROVIDERS: PCP Internal Medicine; Referring Provider Internal Medicine Medical Oncology; Visit Provider Internal Medicine Medical Oncology | DX: I89.0 Lymphedema, not elsewhere classified (principal) | CPT/HCPCS: 97161 ==

== ENCOUNTER → 2021-08-12 12:18 | Outpatient (BNVA) | payer OTHER, SELFPAY | PROVIDERS: PCP Internal Medicine; Visit Provider Internal Medicine | DX: M54.9 Dorsalgia, unspecified (principal); M25.50 Pain in unspecified joint | CPT/HCPCS: 85651; 86140 ==

== ENCOUNTER 2021-10-02 06:57 | Outpatient (CLI) | payer OTHER, SELFPAY ==
--- NOTE | 2021-10-02 07:15 | USCV_ITS ---
Tristian Anthony Age: 60 Gender: F : 1960 Exam Date: 10/02/2021 07:12 Ordering Phys: Carlos Krause MD Technologist: Xavi Sandhu [place] [facility] [place]: CHEST PAIN BP: 124 / 89 HR: 98 Rhythm: Sinus Technical Quality: Adequate MEASUREMENTS (Male / Female) Normal Values 2D ECHO LV Diastolic Diameter PLAX 2.8 cm 4.2 - 5.9 / 3.9 - 5.3 cm LV Systolic Diameter PLAX 2.1 cm IVS Diastolic Thickness 0.9 cm 0.6 - 1.0 / 0.6 - 0.9 cm IVS Systolic Thickness 1.6 cm LVPW Diastolic Thickness 0.8 cm 0.6 - 1.0 / 0.6 - 0.9 cm LVPW Systolic Thickness 1.4 cm LVOT Diameter 2.0 cm LV Ejection Fraction 2D Teich 52.4 % LV Ejection Fraction MOD 2C 66.0 % LV Ejection Fraction 2C AL 65.5 % LA Diameter 3.4 cm LA Width 3.2 cm LA Height 5.0 cm RA Width 3.4 cm RA Height 4.8 cm Aorta at Sinotubular Diameter 2.9 cm M-MODE Aortic Annulus Diameter 3.9 cm LA Ao Ratio MM 1.0 MV E Point Septal Separation 0.8 cm DOPPLER AV Peak Velocity 124.0 cm/s LVOT Peak Velocity 97.0 cm/s AV Area Cont Eq vti 2.7 cm squared AV Area Cont Eq pk 2.5 cm squared MV Area PHT 5.0 cm squared Mitral E to A Ratio 0.7 MV E' Velocity 39.5 cm/s Mitral E to MV E' Ratio 7.7 Mitral E to LV E' Lateral Ratio 8.2 Mitral E to LV E' Septal Ratio 7.3 TR Peak Velocity 131.0 cm/s TR Peak Gradient 6.9 mmHg TV Peak E Velocity 59.0 cm/s Right Atrial Pressure 3.0 mmHg Pulmonary Artery Systolic Pressu 9.9 mmHg PV Peak Velocity 109.0 cm/s FINDINGS Left Ventricle Normal left ventricular size, systolic function and wall thickness, with no regional wall motion abnormalities. Left ventricular ejection fraction is estimated at 70 %. Normal diastolic function. Right Ventricle Normal right ventricular size and systolic function. RVSP could not be calculated due to incomplete tricuspid regurgitation velocity profile. Right Atrium Normal right atrial size. Left Atrium Normal left atrial size. Mitral Valve Structurally normal mitral valve. No mitral valve stenosis. No mitral valve regurgitation. Aortic Valve Structurally normal trileaflet aortic valve. No aortic valve stenosis. No aortic valve regurgitation. Tricuspid Valve Tricuspid valve not well visualized. Trace tricuspid valve regurgitation. Pulmonic Valve Pulmonic valve not well visualized. No pulmonary valve stenosis. Trace pulmonary valve regurgitation. Pericardium No pericardial effusion. Aorta Normal size aortic root and proximal ascending aorta. CONCLUSIONS 1. Normal left ventricular size, systolic function and wall thickness, with no regional wall motion abnormalities. Left ventricular ejection fraction is estimated at 70 %. Normal diastolic function. 2. Normal right ventricular size and systolic function. 3. No significant valvular abnormality. 4. No prior similar studies to compare. Lela Richards MD (Electronically Signed) Final Date: 04 October 2021 13:41 S
--- NOTE | 2021-10-02 07:43 | ECG_ITS ---
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 Measurements Intervals [place] Rate: 94 P: 66 CA: 130 QRS: -48 QRSD: 101 T: 69 QT: 336 QTc: 422 Interpretive Statements SINUS RHYTHM LEFT ANTERIOR FASCICULAR BLOCK [QRS AXIS <= -45, QR IN I, RS IN II] No previous ECG available for comparison Electronically Signed On 10-03-2021 9:02:34 [employer] by Lela Richards M.D. [email or web address]
== END 2021-10-02 06:58 | disposition home or self-care (01) ==
LOC: RAD 06:58
PROVIDERS: PCP Internal Medicine; Visit Provider Internal Medicine
DX: R00.0 Tachycardia, unspecified (principal); I44.7 Left bundle-branch block, unspecified; R07.9 Chest pain, unspecified
CPT/HCPCS: 93005; 93306

== ENCOUNTER → 2022-09-16 11:28 | Outpatient (BNVA) | payer OTHER, SELFPAY | PROVIDERS: PCP Family Medicine; Visit Provider Family Medicine | DX: Z13.6 Encounter for screening for cardiovascular disorders (principal) | CPT/HCPCS: 80053; 80061; 84443; 85025 ==

== ENCOUNTER 2022-09-17 11:06 | Outpatient (CLI) | payer OTHER, SELFPAY ==
[2022-09-17 13:30] LABS: Calcium 10.3 mg/dL (8.5-10.5); Parathyroid Hormone 60.7 pg/mL (15-65)
== END 2022-09-17 11:07 | disposition home or self-care (01) ==
PROVIDERS: PCP Family Medicine; Visit Provider Family Medicine
DX: E83.52 Hypercalcemia (principal)
CPT/HCPCS: 82310; 83970

== ENCOUNTER 2022-09-21 15:18 | Oncology outpatient (recurring) (ONCR) | payer OTHER, SELFPAY | END 2022-09-28 23:59 | disposition home or self-care (01) | LOC: ONCMED 15:19 | PROVIDERS: PCP Family Medicine; Visit Provider Internal Medicine Medical Oncology | DX: C50.411 Malignant neoplasm of upper-outer quadrant of right female breast (principal); Z17.0 Estrogen receptor positive status [ER+] ==

== ENCOUNTER 2022-10-21 07:54 | Outpatient (CLI) | payer OTHER, SELFPAY ==
--- NOTE | 2022-10-21 08:05 | US_ITS ---
WS: [id number] EXAMINATION: US soft tissue/extremity 34490 REASON FOR EXAM: post mastectomy, right axilla COMPARISON: None available. ORDER DATE: 10/21/2022 8:08 AM TECHNIQUE: Ultrasound imaging was obtained including duplex vascular imaging of the right axilla FINDINGS: Normal left fascial planes are imaged with no evidence of focal fluid collections or adenopathy. US/US soft tissue/extremity [id number] IMPRESSION: Unremarkable right axillary ultrasound study
--- NOTE | 2022-10-21 08:05 | XR_ITS ---
WS: [id number] EXAMINATION: XR lumbar spine 2-3V* [id number] L-SPINE : 3 views REASON FOR EXAM: Lower back pain, elevated alkaline phosphatase COMPARISON: None available. ORDER DATE: 10/21/2022 8:05 AM FINDINGS: The lumbar vertebral bodies are normal in width. There is prominent intervertebral disc narrowing at the L5-S1 level. There is a suggestion of very short pedicle at the L5 level with hypertrophic and de generative facet changes at L5-S1. This could be contributing to spinal stenosis at this level. In th e lumbar vertebra, there is no evidence of compression deformities or spondylolisthesis. There is dayanara y minimal marginal osteophytes at the endplates. Atherosclerotic vascular calcifications are seen in the aorta XR/XR lumbar spine 2-3V* [id number] IMPRESSION: Prominent intervertebral disc narrowing at L5-S1. Possible spinal stenosis at t his level which may be evaluated with cross-sectional imaging if clinically ind icated
== END 2022-10-21 07:55 | disposition home or self-care (01) ==
LOC: RAD 07:57
PROVIDERS: PCP Family Medicine; Visit Provider Internal Medicine Medical Oncology
DX: Z90.11 Acquired absence of right breast and nipple (principal); M48.07 Spinal stenosis, lumbosacral region
CPT/HCPCS: 72100; 76882

== ENCOUNTER → 2022-11-09 09:40 | Outpatient (BNVA) | payer OTHER, SELFPAY | PROVIDERS: PCP Family Medicine; Visit Provider Family Medicine | DX: Z01.419 Encounter for gynecological examination (general) (routine) without abnormal findings (principal) | CPT/HCPCS: 88175 ==

== ENCOUNTER 2022-12-03 13:50 | Outpatient (CLI) | payer OTHER, SELFPAY ==
--- NOTE | 2022-12-03 13:45 | MR_ITS ---
WS: [id number] MRI LUMBAR SPINE WITH CONTRAST TECHNIQUE: Sagittal T1, T2 and STIR imaging. Axial T1 and T2 imaging. Post gadolinium imaging was obt ained. CLINICAL INFORMATION: abnormal xray COMPARISON: None. FINDINGS: Mild lumbar curve. No acute compression. No high-grade central canal stenosis. Slight retrolisthesis L3 on L4 and L4 on L5. L1-L2: Mild facet arthropathy. Mild annular bulging. Spinal canal and foramen are patent. L2-L3: Mild annular bulging. Slight effacement of the ventral thecal sac. Spinal canal and foramen ar e patent. Mild facet arthropathy. L3-L4: Mild annular bulging with mild central canal stenosis. Impingement traversing L4 nerve roots L EFT greater than RIGHT. Mild facet arthropathy. Mild LEFT and no significant RIGHT foraminal narrowin g. L4-L5: Mild annular bulging with slight impingement traversing RIGHT greater than LEFT L5 nerve roots . Mild facet arthropathy. Impingement on the exiting RIGHT L4 nerve root with mild RIGHT foraminal na rrowing. Mild LEFT foraminal narrowing. Moderate facet arthropathy. L5-S1: Tiny RIGHT subarticular protrusion. Slight impingement traversing RIGHT S1 nerve root subartic ular recess. Mild facet arthropathy. Moderate RIGHT and mild LEFT foraminal narrowing. Slight retroli sthesis L5 on S1. Visualized pelvic bony structures: Normal. Paravertebral soft tissues: Normal. MR/MR lumbar spine wo/w con [id number] IMPRESSION: 1. Mild lumbar curve. No acute compression. 2. Mild central canal stenosis L3-L4 and L4-L5 with impingement on the subarti cular recess at these levels. 3. Tiny LEFT foraminal protrusion L3-L4 with mild LEFT foraminal narrowing. 4. RIGHT foraminal protrusion L4-L5 impinges the exiting RIGHT L4 nerve root. Correlation RIGHT L4 nerve root symptoms. 5. Moderate RIGHT L5-S1 foraminal narrowing. 6. Disc bulging L5-S1 slightly contacts the traversing RIGHT S1 nerve root.
[2022-12-03] MEDS: gadobenate dimeglumine 20 mL vial IV (14:48)
== END 2022-12-03 13:51 | disposition home or self-care (01) ==
PROVIDERS: PCP Family Medicine; Visit Provider Nurse Practitioner
DX: C50.411 Malignant neoplasm of upper-outer quadrant of right female breast (principal); M53.3 Sacrococcygeal disorders, not elsewhere classified; M43.8X6 Other specified deforming dorsopathies, lumbar region; M48.061 Spinal stenosis, lumbar region without neurogenic claudication; M51.26 Other intervertebral disc displacement, lumbar region; M51.37 Other intervertebral disc degeneration, lumbosacral region
CPT/HCPCS: 72158; A9577

== ENCOUNTER → 2023-02-28 10:12 | Outpatient (BNVA) | payer OTHER, SELFPAY | PROVIDERS: PCP Family Medicine; Visit Provider Family Medicine | DX: R10.13 Epigastric pain (principal); E78.5 Hyperlipidemia, unspecified | CPT/HCPCS: 80053; 80061; 83690 ==

== ENCOUNTER → 2023-07-11 15:57 | Outpatient (BNVA) | payer OTHER, SELFPAY | PROVIDERS: PCP Family Medicine; Visit Provider Family Medicine | DX: R25.2 Cramp and spasm (principal) | CPT/HCPCS: 80048; 83735 ==

== ENCOUNTER 2023-10-17 13:08 | Outpatient (CLI) | payer OTHER, SELFPAY ==
--- NOTE | 2023-10-17 13:30 | US_ITS ---
WS: [id number] ULTRASOUND BREAST RIGHT TECHNIQUE: Ultrasound right breast focused area of concern. CLINICAL INFORMATION: right axillary tissue FINDINGS: Ultrasound RIGHT axilla in the area of concern. Normal underlying parenchymal tissue. No cystic or so lid lesions. No visualized lymphadenopathy. No suspicious findings. IMPRESSION: No suspicious findings in the area of concern.
== END 2023-10-17 13:09 | disposition home or self-care (01) ==
LOC: RAD 13:09
PROVIDERS: PCP Family Medicine; Visit Provider Family Medicine
DX: C50.411 Malignant neoplasm of upper-outer quadrant of right female breast (principal)
CPT/HCPCS: 76642

== ENCOUNTER 2023-10-26 12:44 | Oncology outpatient (recurring) (ONCR) | payer OTHER, SELFPAY ==
[2023-10-26 13:19] LABS: Basophils # 0.1 10^3/uL (0.0-0.1); Basophils % 0.7 %; Eosinophils # 0.1 10^3/uL (0.0-0.8); Eosinophils % 1.2 %; Hematocrit 43.2 % (36-47); Lymphocytes # 2.2 10^3/uL (0.8-4.8); Lymphocytes % 27.5 %; Mean Corpuscular HGB Conc 34.3 g/dL (30-55); Mean Corpuscular Hemoglobin 30.8 pg (27-33); Monocytes # 0.5 10^3/uL (0.2-0.9); Monocytes % 6.7 %; Neutrophils # 5.15 10^3/uL (1.8-7.7); Neutrophils % 63.7 %; Nucleated Red Blood Cells % 0 %; Platelet Count 257 10^3/cmm (157-399); Red Cell Distribution Width 12.3 % (12.1-15.1)
[2023-10-26 13:36] LABS: Alanine Aminotransferase 13 U/L (0-33); Albumin Level 4.1 g/dL (3.5-5.2); Alkaline Phosphatase 123 U/L (35-105); Anion Gap 12.9 (5-19); Aspartate Amino Transferase 12 U/L (0-32); Blood Urea Nitrogen 17 mg/dL (8-23); Calcium 10.2 mg/dL (8.5-10.5); Carbon Dioxide 27 mmol/L (22-29); Chloride 104 mmol/L (98-107); Globulin 2.6 g/dL (1.3-4.6); Glomerular Filtration Rate 84.5 mL/min (90-130); Glucose 85 mg/dL (65-115); Osmolality Calculated 291 mOsm/kg (285-295); Potassium 3.9 mmol/L (3.5-5.1); Sodium 140 mmol/L (136-145); Total Bilirubin 0.4 mg/dL (0.15-1.2); Total Protein 6.7 g/dL (6.6-8.7)
== END 2023-10-30 23:59 | disposition home or self-care (01) ==
LOC: ONCMED 12:46
PROVIDERS: PCP Family Medicine; Visit Provider Internal Medicine Medical Oncology
DX: C50.411 Malignant neoplasm of upper-outer quadrant of right female breast (principal)
CPT/HCPCS: 36415; 80053; 85025

== ENCOUNTER → 2024-02-09 11:49 | Outpatient (BNVA) | payer OTHER, SELFPAY | PROVIDERS: PCP Family Medicine | DX: Z13.6 Encounter for screening for cardiovascular disorders (principal); I10 Essential (primary) hypertension; M54.9 Dorsalgia, unspecified | CPT/HCPCS: 80053; 80061; 82306; 83690; 84443; 84481; 85025 ==

== ENCOUNTER → 2024-07-05 09:14 | Outpatient (BNVA) | payer OTHER, SELFPAY | DX: Z13.6 Encounter for screening for cardiovascular disorders (principal); R53.83 Other fatigue | CPT/HCPCS: 80053; 80061; 82306; 82607; 84439; 84443; 84481; 85025 ==

== ENCOUNTER 2024-08-21 06:21 | Day surgery (SDC) | payer OTHER, SELFPAY ==
[2024-08-21 06:32] VITALS: BP 116/79; PULSE 88; RESP 18; TEMP 36.9; O2SAT 97; BMI 29.0
--- NOTE | 2024-08-21 06:48 | P.ANESASSM_ITS ---
Pre-Anesthetic Assessment Height/Weight: Height 1.68 m Weight 81.647 kg Temp Pulse Resp BP Pulse Ox O2 Del Method 98.4 F 88 18 116/79 97 Room Air 08/21/24 06:32 08/21/24 06:32 08/21/24 06:32 08/21/24 06:32 08/21/24 06:32 08/21/24 06:32 Operation Date: 08/21/24 07:30 Proposed Procedures p Colonoscopy 06576, G0105, Z12.11(Not Applicable) - Johnnie Salazar MD Familial anesthetic complications: None Was Beta Nel taken within 24 hours: N/A Was Clonidine taken within 24 hours: N/A Last intake: Intake Last Liquid Date 08/20/24 Last Liquid Time 21:00 Last Solid Date 08/19/24 Last Solid Time 20:00 Social No alcohol and No tobacco Exam alert, oriented x 3, clear to auscultation bilaterally and regular rate & rhythm Airway Submandibular: within normal limits (TMJ) Cervical ROM: within normal limits Mallampati: Class III Dentition: partials History/ROS No significant history except as noted and No significant complaints Pulmonary Sleep Apnea CV/HEM Arrythmia, Congestive Heart Failure and Hypertension None reported Hepatic None reported GI Gastroesophageal Reflux Disease (None this morning, controlled with meds) Pancreatitis 5 years ago Metabolic Hyperlipidemia Musc/skel Lower Back Pain, Osteoarthritis/DJD and Scoliosis Neuropsych Anxiety, Depression and Headache RLS Breast cancer Anesthetic Plan ASA status: 3 Anesthesia: Anesthesia Evaluation, General and MAC Risk of > 500 ml blood loss (7ml/kg in children): No Medications/Allergies Home Medications Medication Instructions Recorded Confirmed Last Taken Type acetaminophen 325 mg tablet 325 mg PO QID PRN Pain 06/10/20 08/17/24 08/16/24 History (Tylenol) magnesium 200 mg tablet 500 mg PO DAILY 10/25/22 08/17/24 08/17/24 History calcium carbonate (Calcium 600) 600 mg PO DAILY #30 tabs 06/18/24 08/17/24 08/17/24 Rx bupropion HCl 150 mg tablet,12 hr 150 mg PO QAM #30 tabs 06/25/24 08/17/24 08/17/24 Rx sustained-release buspirone 10 mg tablet 10 mg PO BID anxiety #60 tabs 06/25/24 08/17/24 08/17/24 Rx furosemide 20 mg tablet 20 mg PO QAM PRN edema #30 tabs 08/13/24 08/17/24 2 Months Ago Rx ~06/17/24 celecoxib 200 mg capsule 200 mg PO BID 08/16/24 08/17/24 Unknown History losartan 50 mg tablet 50 mg PO DAILY 08/16/24 08/17/24 08/17/24 History nifedipine 30 mg tablet,extended 30 mg PO DAILY 08/16/24 08/17/24 08/17/24 History release 24 hr pantoprazole 40 mg tablet,delayed 40 mg PO DAILY 08/16/24 08/17/24 08/17/24 History release simvastatin 40 mg tablet 40 mg PO BEDTIME 08/16/24 08/17/24 08/17/24 History trazodone 50 mg tablet 50 mg PO BEDTIME 08/16/24 08/17/24 08/17/24 History gabapentin 600 mg tablet 600 mg PO TID 08/17/24 08/17/24 08/17/24 History Allergies Allergy/AdvReac Type Severity Reaction Status Date / Time meperidine [From Demerol] Allergy Unknown Verified 07/30/24 08:44 [facility] Anesthesia Medical History Screening for colon cancer Fatigue Overweight (BMI 25.0-29.9) Hypercholesteremia Chronic low back pain with right-sided sciatica Gene mutation CHEK2 deleterious gene mutation Osteopenia Anxiety Degenerative arthritis Low back Obstructive sleep apnea Infiltrating ductal carcinoma of upper-outer quadrant of right breast in female Duodenitis History of duodenitis/pancreatitis HTN (hypertension) IBS (irritable bowel syndrome) TIA (transient ischemic attack) Surgical History S/P mastectomy, bilateral (09/22/20) Bilateral mastectomy, right axillary sentinel lymph node biopsy, and breast reconstruction Status post colonoscopy (07/01/20) H/O esophagogastroduodenoscopy (07/01/20) History of tubal ligation History of Family History Mother Polymyalgia rheumatica Father Abdominal aortic aneurysm Family/Other Diabetes Grandson - Type 1 Grandmother Psychiatric illness Other CAD (coronary artery disease) Cancer Hyperlipidemia Hypertension Denies family history of Clotting disorder Dementia Chronic kidney disease (CKD) Suicide Anesthesia complication Bleeding disorder Lung disease Stroke Social History Smoking and tobacco/nicotine status: former use of tobacco/nicotine (quit 2008) Quit status (tobacco/nicotine): has quit using Year quit tobacco: Several years ago, last cigarette was today Alcohol intake: current Alcohol intake frequency: holidays/special occasions only Alcohol type: wine Substance/Drug Use: never Lives independently: Yes Household members: spouse Housing: House Marital status: Current occupational status: employed Data Anesthesia Cardiac Studies: Echocardiogram 10/02/21
[2024-08-21] MEDS: sodium chloride 0.9% 500 ML 15 ML IV (06:49)
--- NOTE | 2024-08-21 07:06 | W.PM.OPSUD ---
Surgery/Procedure H&P Update DATE OF PROCEDURE: August 21, 2024 DATE H&P PERFORMED: 07/30/24 H&P UPDATE INFORMATION: I have reviewed H&P completed within last 30 days, I have examined patient prior to procedure and No changes to prior documentation PLANNED PROCEDURE: Operation Date: 08/21/24 07:30 Proposed Procedures p Colonoscopy 85290, G0105, Z12.11(Not Applicable) - Johnnie Salazar MD
[2024-08-21 07:54] VITALS: BP 127/75; PULSE 80; RESP 14; TEMP 36.2; O2SAT 94
[2024-08-21 08:00] VITALS: BP 117/74; PULSE 74; RESP 16; O2SAT 98
[2024-08-21 08:20] VITALS: BP 120/71; PULSE 64; RESP 18; O2SAT 96
[2024-08-21 08:30] VITALS: BP 141/79; PULSE 70; RESP 18; O2SAT 98
--- NOTE | 2024-08-21 08:58 | ANE.PACU2 ---
Inpatient post-anesthesia follow up: Airway intact: Yes Vital signs: Temperature 97.2 F Pulse Rate 70 Respiratory Rate 18 Blood Pressure 141/79 Pulse Oximetry 98 Oxygen Delivery Me thod Room Air Oxygen Flow Rate Fraction of Inspir ed Oxygen Hydration adequate: Yes Nausea and vomiting: No Pain level: 1 Mental status: Baseline
== END 2024-08-21 08:58 | disposition home or self-care (01) ==
PROVIDERS: Visit Provider Student in an Organized Health Care Education/Training Program
PROC: 0DJD8ZZ Inspection of Lower Intestinal Tract, Via Natural or Artificial Opening Endoscopic (ICD-10-PCS; CPT 45378; principal; 2024-08-21 07:30)
DX: Z12.11 Encounter for screening for malignant neoplasm of colon (principal); K57.30 Diverticulosis of large intestine without perforation or abscess without bleeding; E78.00 Pure hypercholesterolemia, unspecified; G47.33 Obstructive sleep apnea (adult) (pediatric); Z86.73 Personal history of transient ischemic attack (TIA), and cerebral infarction without residual deficits; Z87.891 Personal history of nicotine dependence; I11.0 Hypertensive heart disease with heart failure; I50.9 Heart failure, unspecified; K21.9 Gastro-esophageal reflux disease without esophagitis; E78.5 Hyperlipidemia, unspecified; Z85.3 Personal history of malignant neoplasm of breast
CPT/HCPCS: 45378; J2405; J2704; J7040

== ENCOUNTER 2024-10-03 09:22 | Outpatient (RCR) | payer OTHER, SELFPAY | END 2024-10-29 23:59 | disposition home or self-care (01) | LOC: SPT 09:22 | PROVIDERS: Visit Provider Nurse Practitioner Family | DX: I89.0 Lymphedema, not elsewhere classified (principal); T85.44XA Capsular contracture of breast implant, initial encounter; Y83.8 Other surgical procedures as the cause of abnormal reaction of the patient, or of later complication, without mention of misadventure at the time of the procedure; Z85.3 Personal history of malignant neoplasm of breast | CPT/HCPCS: 97140; 97161 ==

== ENCOUNTER → 2024-10-11 12:04 | Outpatient (BNVA) | payer OTHER, SELFPAY | PROVIDERS: Visit Provider Family Medicine | DX: R10.9 Unspecified abdominal pain (principal); G89.29 Other chronic pain | CPT/HCPCS: 80053; 83690; 85025 ==

== ENCOUNTER 2024-11-01 12:56 | Oncology outpatient (recurring) (ONCR) | payer OTHER, SELFPAY ==
[2024-11-01 13:20] LABS: Basophils # 0.1 10^3/uL (0.0-0.1); Eosinophils # 0.2 10^3/uL (0.0-0.8); Eosinophils % 2.7 %; Hematocrit 43.7 % (36-47); Lymphocytes # 2.5 10^3/uL (0.8-4.8); Lymphocytes % 34.8 %; Mean Corpuscular HGB Conc 34.8 g/dL (30-55); Mean Corpuscular Hemoglobin 30.5 pg (27-33); Mean Corpuscular Volume 87.8 fl (85-98); Mean Platelet Volume 9.6 fL (7.4-10.4); Monocytes # 0.5 10^3/uL (0.2-0.9); Monocytes % 7.5 %; Neutrophils # 3.81 10^3/uL (1.8-7.7); Neutrophils % 53.7 %; Nucleated Red Blood Cells % 0 %; Platelet Count 282 10^3/cmm (157-399); Red Blood Count 4.98 10^6/uL (3.85-5.65); Red Cell Distribution Width 12.1 % (12.1-15.1); White Blood Count 7.09 10^3/uL (3.29-11.43)
[2024-11-01 13:36] LABS: Alanine Aminotransferase 14 U/L (0-33); Albumin Level 4.1 g/dL (3.5-5.2); Alkaline Phosphatase 104 U/L (35-105); Anion Gap 12.3 (5-19); Aspartate Amino Transferase 15 U/L (0-32); Blood Urea Nitrogen 10 mg/dL (8-23); Calcium 9.7 mg/dL (8.5-10.5); Carbon Dioxide 27 mmol/L (22-29); Chloride 103 mmol/L (98-107); Globulin 2.5 g/dL (1.3-4.6); Glomerular Filtration Rate 84.2 mL/min (90-130); Glucose 87 mg/dL (65-115); Osmolality Calculated 284 mOsm/kg (285-295); Potassium 4.3 mmol/L (3.5-5.1); Sodium 138 mmol/L (136-145); Total Bilirubin 0.3 mg/dL (0.15-1.2); Total Protein 6.6 g/dL (6.6-8.7)
== END 2024-11-28 23:59 | disposition home or self-care (01) ==
PROVIDERS: Nurse Practitioner Family; Visit Provider Internal Medicine
DX: C50.919 Malignant neoplasm of unspecified site of unspecified female breast (principal)
CPT/HCPCS: 36415; 80053; 85025

== ENCOUNTER 2024-12-13 12:40 | Oncology outpatient (recurring) (ONCR) | payer MEDICARE, OTHER, SELFPAY ==
--- NOTE | 2024-12-13 13:00 | XR_ITS ---
WS: [id number] SCREENING DEXA SCAN [facility] CLINICAL INFORMATION: osteopenia COMPARISON: 2020 FINDINGS: The L1-L4 bone mineral density measures 1.029 g/cm2. This corresponds to a T score score of -1.3 and Z score of -0.3. Left femoral neck bone mineral density measures 0.826 g/cm2. This corresponds to a T score of -1.4 and Z score of -0.7. Right femoral neck bone mineral density measures 0.801 g/cm2. This corresponds to a T score -1.6of and Z score of -0.9. Mean femoral neck bone mineral density measures 0.813 g/cm2. This corresponds to a T score of -1.5 and Z score of -0.8. XR/XR DEXA axial skeleton* [id number] IMPRESSION: Osteopenia lumbar spine. Osteopenia femoral necks. Patient's FRAX calculated 10 year probability for major osteoporotic fracture i s 16.9% and osteoporotic hip fracture is 2.5%.
== END 2024-12-29 23:59 | disposition home or self-care (01) ==
LOC: RAD 12:42 → ONCMED 12-14 09:36
PROVIDERS: PCP Family Medicine; Visit Provider Nurse Practitioner Family
DX: C50.919 Malignant neoplasm of unspecified site of unspecified female breast (principal); M85.80 Other specified disorders of bone density and structure, unspecified site; Z92.21 Personal history of antineoplastic chemotherapy
CPT/HCPCS: 77080

== ENCOUNTER 2024-12-13 15:21 | Outpatient (RCR) | payer MEDICARE, OTHER, SELFPAY | END 2024-12-29 23:59 | disposition home or self-care (01) | LOC: SPT 15:21 | PROVIDERS: PCP Family Medicine; Visit Provider Family Medicine | DX: H81.10 Benign paroxysmal vertigo, unspecified ear (principal) | CPT/HCPCS: 95992; 97161 ==

== ENCOUNTER → 2025-05-07 08:47 | Outpatient (BNVA) | payer OTHER, SELFPAY | PROVIDERS: Visit Provider Internal Medicine | DX: C50.411 Malignant neoplasm of upper-outer quadrant of right female breast (principal) | CPT/HCPCS: 80053; 85025 ==

== ENCOUNTER 2025-05-08 14:20 | Oncology outpatient (recurring) (ONCR) | payer MEDICARE, OTHER, SELFPAY | END 2025-05-31 23:59 | disposition home or self-care (01) | PROVIDERS: Visit Provider Nurse Practitioner Family | DX: Z08 Encounter for follow-up examination after completed treatment for malignant neoplasm (principal); Z85.3 Personal history of malignant neoplasm of breast; M85.80 Other specified disorders of bone density and structure, unspecified site; Z87.891 Personal history of nicotine dependence; Z90.13 Acquired absence of bilateral breasts and nipples | CPT/HCPCS: 99213 ==